=== PATIENT | male | born 1955 | race Caucasian/White ===

== ENCOUNTER 2017-04-29 16:39 | Emergency (ER) | payer OTHER ==
--- NOTE | 2017-04-29 17:51 | EDM.PDOC ---
ED HPI GENERAL MEDICAL PROBLEM - General Chief Complaint: Chest Pain Stated Complaint: MAY HAVE CRACKED RIB Time Seen by Provider: 04/29/17 17:51 Source of Information: Reports: Patient - History of Present Illness INITIAL COMMENTS - FREE TEXT/NARRATIVE: Patient is a 61-year-old male who is here for evaluation of right-sided chest pain with cough. He states that he was diagnosed with bronchitis by his PCP. He was treated with Zithromax and albuterol inhaler. He has been taking ibuprofen 800 mg 3 times a day. Patient states that his cough is mildly improving but he is having pain to 1 specific location when he coughs. Patient states that he did have a chest x-ray yesterday was told by his provider that it was normal. Right Chest Pain Score (Numeric/FACES): 10 - Related Data Allergies Allergy/AdvReac Type Severity Reaction Status Date / Time No Known Allergies Allergy Verified 04/29/17 17:08 Home Meds: Home Meds Indomethacin [Indocin] 25 mg PO TID PRN #15 cap 04/29/17 [Rx] Promethazine HCl/Codeine [Prometh-Codein 6.25-10 mg/5 ml] 5 ml PO BEDTIME PRN # 100 ml 04/29/17 [Rx] predniSONE [Prednisone] 20 mg PO DAILY #7 tablet 04/29/17 [Rx] Past Medical History Cardiovascular History: Reports: High Cholesterol, Hypertension - Past Surgical History HEENT Surgical History: Reports: Other (See Below) Other HEENT Surgeries/Procedures: theroglossal cyst Social & Family History - Tobacco Use Smoking Status *Q: Never Smoker - Caffeine Use Caffeine Use: Reports: Coffee - Recreational Drug Use Recreational Drug Use: No ED ROS GENERAL - Review of Systems Review Of Systems: See Below Constitutional: Reports: Malaise, Fatigue, Decreased Appetite. Denies: Fever, Chills, Weakness HEENT: Reports: Rhinitis, Sinus Problem. Denies: Throat Pain, Throat Swelling Respiratory: Reports: Wheezing, Pleuritic Chest Pain, Cough, Sputum. Denies: Shortness of Breath, Hemoptysis Cardiovascular: Denies: Chest Pain, Blood Pressure Problem, Dyspnea on Exertion , Edema, Lightheadedness, Palpitations Endocrine: Reports: Fatigue GI/Abdominal: Reports: Decreased Appetite. Denies: Abdominal Pain, Nausea, Vomiting Musculoskeletal: Reports: Other (right chest wall pain) Skin: Reports: No Symptoms Neurological: Reports: No Symptoms Psychiatric: Reports: No Symptoms ED EXAM, GENERAL - Physical Exam Exam: See Below Exam Limited By: No Limitations General Appearance: Alert, WD/WN, No Apparent Distress Eye Exam: Bilateral Eye: Normal Inspection, PERRL Ears: Normal External Exam, Normal Canal, Normal TMs Nose: Normal Inspection, Nasal Drainage (Purulent) Throat/Mouth: Normal Inspection, Normal Oropharynx, No Airway Compromise, Other (Clear postnasal drainage) Head: Atraumatic, Normocephalic Respiratory/Chest: No Respiratory Distress, No Accessory Muscle Use, Wheezing ( Occasional scattered expiratory bilaterally). No: Respiratory Distress, Decreased Breath Sounds, Crackles, Rales Cardiovascular: Normal Peripheral Pulses, Regular Rate, Rhythm, No Murmur, No Rub GI/Abdominal: Normal Bowel Sounds Neurological: Alert, Oriented Psychiatric: Normal Affect, Normal Mood Course - Vital Signs Last Recorded V/S: Last Vital Signs Temp 97.3 F 04/29/17 17:04 Pulse 77 04/29/17 17:04 Resp 16 04/29/17 17:04 BP 168/86 H 04/29/17 17:04 Pulse Ox 97 04/29/17 17:04 - Re-Assessments/Exams Free Text/Narrative Re-Assessment/Exam: Pleurisy secondary to bronchitis. I do not see reason to repeat chest x-ray at this time. Patient will continue his Zithromax and albuterol inhaler. Will put him on prednisone for a few days. Indomethacin 3 times daily as needed for pain. Will also give him promethazine cough syrup for bedtime. Recommend that he rest, maximize oral fluids. Patient is to follow-up with PCP in 5-7 days or sooner if needed. He can return to the emergency room if any worsening of symptoms. 04/29/17 21:09 Departure - Departure Time of Disposition: 18:20 Disposition: Home, Self-Care 01 Condition: Good Clinical Impression: Cough, Pleurisy - Discharge Information Prescriptions: Indomethacin [Indocin] 25 mg PO TID PRN #15 cap PRN Reason: Pain predniSONE [Prednisone] 20 mg PO DAILY #7 tablet Promethazine HCl/Codeine [Prometh-Codein 6.25-10 mg/5 ml] 5 ml PO BEDTIME PRN # 100 ml PRN Reason: Cough Instructions: Cough, Adult, [id number] Referrals: Anusha Adamson, SE[employer] INSTALLER [Primary Care Provider] - Forms: ED Department Discharge Additional Instructions: Rest, push fluids as much as possible indocin 3x daily as needed cough syrup as bedtime if needed, will cause drowsiness. Hold a pillow when you cough Follow-up with your PCP next week if symptoms not improving or sooner if needed.
== END 2017-04-29 18:33 | disposition home or self-care (01) ==
LOC: JD.ED 16:39
DX: R09.1 Pleurisy (principal); E78.00 Pure hypercholesterolemia, unspecified; I10 Essential (primary) hypertension; Z79.899 Other long term (current) drug therapy
CPT/HCPCS: 99283

== ENCOUNTER 2019-02-14 11:06 | Inpatient (IN) | payer MEDICARE, OTHER ==
[~2019-02-14 11:06] MED LIST: Acetaminophen 325 MG Tab PO ONE; Bisacodyl 5 MG Tab PO PRN; Lactated Ringers 1,000 ML IV SCH; Lidocaine 1%/Sod Bicarbonate in NS 8.4% 1 ML Syringe IDERM PRN; Magnesium Hydroxide 400 MG/5 ML Susp 30 ML Cup PO PRN; Morphine 2 MG/ML Syringe IVPUSH PRN; Naloxone 0.4 MG/ML SDV IVPUSH PRN; Ondansetron 4 MG/2 ML SDV IVPUSH PRN; Pregabalin 25 MG Cap PO SCH; Sennosides 8.6 MG Tab PO PRN; Sodium Chloride 0.9% 10 ML Syringe FLUSH PRN; oxyCODONE ER 10 MG TAB.ER PO SCH
[2019-02-14] MEDS ORDERED: Ropivacaine 0.5% 5 MG/ML 30 ML SDV ONE (11:25)
[2019-02-14] MEDS ORDERED: fentaNYL 100 MCG/2 ML SDV ONE (11:50)
[2019-02-14] MEDS ORDERED: Propofol 200 MG/20 ML SDV ONE ×2 (11:50→12:57)
--- NOTE | 2019-02-14 11:50 | PCM.CONS ---
H&P History of Present Illness - General Date of Service: 02/14/19 Admit Problem/Dx: Admission Diagnosis/Problem Admission Diagnosis/Problem Osteoarthritis of knee Source of Information: Patient, Old Records, Provider, RN, RN Notes Reviewed History Limitations: Reports: No Limitations - History of Present Illness Initial Comments - Free Text/Narative: Duarte Morley is a 63 yo male patient of Dr. Sanders who is post-operative day 0 of left TKA with right knee cortisone injection. Hospital medicine was consulted for post-operative medical care of the following listed medical conditions. At this time he is resting comfortably in bed. Pain is controlled. He denies any chest pain, shortness of breath, palpitations, nausea, or vomiting. He carries a history of: Theroglossal cyst, HLD, BPH, HTN, Hypokalemia , Diverticulitis, GERD, Hematuria, Leukocytosis, Sub total parathyroidectomy, Nocturia. He was never a smoker. He was noted to have some PACs during surgery and will be placed on telemetry. 12-lead EKG obtained post-surgically showed a sinus rhythm with no ectopy. He is a full code. His primary care provider is Anusha Adamson NP. Left KNee Pain Score (Numeric/FACES): 2 - Related Data Allergies/Adverse Reactions: Allergies Allergy/AdvReac Type Severity Reaction Status Date / Time No Known Allergies Allergy Verified 02/14/19 06:33 Home Medications: Home Meds Fish Oil/[place]-3 Fatty Acids [Fish Oil 1,000 MG] 2 each PO DAILY 02/01/18 [ History] Lutein 6 mg PO DAILY 02/01/18 [History] Tamsulosin HCl 1 tab PO DAILY 02/01/18 [History] Ubidecarenone [Coenzyme Q-10] 10 mg PO DAILY 02/01/18 [History] atorvaSTATin [Lipitor] 20 mg PO BEDTIME 02/01/18 [History] Cholecalciferol (Vitamin D3) [Vitamin D3] 5,000 unit PO DAILY 02/14/19 [History] Finasteride 5 mg PO DAILY 02/14/19 [History] Lisinopril 10 mg PO DAILY 02/14/19 [History] Past Medical History HEENT History: Reports: Impaired Vision, Other (See Below) Other HEENT History: eye irritation Cardiovascular History: Reports: High Cholesterol, Hypertension Other Respiratory History: chest congestion, cough, URI Gastrointestinal History: Reports: Other (See Below) Other Gastrointestinal History: diverticulitis, heartburn, abdominal wall lipoma Genitourinary History: Reports: BPH, Other (See Below) Other Genitourinary History: nocturia, UTI MOLD STACKER History: Reports: None Other Musculoskeletal History: chronic pain, left elbow pain, rib pain Neurological History: Reports: Other (See Below) Other Neuro History: seasickness Psychiatric History: Reports: None Hematologic History: Reports: Other (See Below) Other Hematologic History: leukocytosis Immunologic History: Reports: None Oncologic (Cancer) History: Reports: None Dermatologic History: Reports: Other (See Below) Other Dermatologic History: skin lesion - Past Surgical History Head Surgeries/Procedures: Reports: None HEENT Surgical History: Reports: Other (See Below) Other HEENT Surgeries/Procedures: theroglossal cyst Respiratory Surgical History: Reports: None GI Surgical History: Reports: Colonoscopy Female Surgical History: Reports: None Male Surgical History: Reports: None Endocrine Surgical History: Reports: Parathyroidectomy, Thyroid Biopsy Musculoskeletal Surgical History: Reports: Other (See Below) Other Musculoskeletal Surgeries/Procedures:: ankle fracture with surgical repair Oncologic Surgical History: Reports: None Social & Family History - Family History Family Medical History: Noncontributory - Tobacco Use Smoking Status *Q: Never Smoker - Caffeine Use Caffeine Use: Reports: Soda - Recreational Drug Use Recreational Drug Use: No Drug Use in Last 12 Months: No H&P Review of Systems - Review of Systems: Review Of Systems: See Below General: Reports: No Symptoms. Denies: Fever, Chills HEENT: Reports: No Symptoms. Denies: Headaches, Sore Throat Pulmonary: Reports: No Symptoms. Denies: Shortness of Breath, Wheezing, Pleuritic Chest Pain, Cough, Sputum Cardiovascular: Reports: No Symptoms. Denies: Chest Pain, Palpitations, Dyspnea on Exertion Gastrointestinal: Reports: No Symptoms. Denies: Abdominal Pain, Constipation, Diarrhea, Nausea, Vomiting Genitourinary: Reports: No Symptoms. Denies: Pain Musculoskeletal: Reports: Leg Pain (left) Skin: Reports: No Symptoms. Denies: Cyanosis Psychiatric: Reports: No Symptoms. Denies: Confusion Neurological: Reports: Difficulty Walking, Gait Disturbance. Denies: Pre- Existing Deficit Hematologic/Lymphatic: Reports: No Symptoms Immunologic: Reports: No Symptoms Exam - Exam Exam: See Below - Exam Quality Assessment: Supplemental Oxygen, DVT Prophylaxis General: Alert, Oriented, Cooperative. No: Mild Distress HEENT: Conjunctiva Clear, EACs Clear, EOMI, Hearing Intact, Mucosa Moist & [place] , Nares Patent, Posterior Pharynx Clear, PERRLA Neck: Supple, Trachea Midline Lungs: Clear to Auscultation, Normal Respiratory Effort Cardiovascular: Regular Rate, Regular Rhythm, Other (Occasional PAC on the monitor. ) GI/Abdominal Exam: Normal Bowel Sounds, Soft, Non-Tender, No Distention, No Abnormal Bruit (Male) Exam: Deferred Rectal (Males) Exam: Deferred Back Exam: Normal Inspection, Full Range of Motion Extremities: No Pedal Edema, Normal Capillary Refill, Leg Pain, Limited Range of Motion, Other (Bandage in place on left leg. Bandage is dry and intact. Cooling pack in place. ) Peripheral Pulses: 2+: Radial (L), Radial (R), Dorsalis Pedis (L), Dorsalis Pedis (R) Skin: Warm, Dry, Intact Neurological: Cranial Nerves Intact (Grossly ) Neuro Extensive - Mental Status: Alert, Oriented x3, Normal Mood/Affect Psychiatric: Alert, Normal Affect, Normal Mood Consult PN Assessment/Plan POD#: 0 Procedures: Procedures ASSAY OF BLOOD/URIC ACID (10/23/15) ASSAY OF LIPASE (02/01/18) ASSAY OF PREALBUMIN (02/03/19) ASSAY OF PSA TOTAL (03/07/15) ASSAY THYROID STIM HORMONE (05/12/17) BL SMEAR W/DIFF WBC COUNT (02/01/18) COMPLETE CBC AUTOMATED (02/01/18) COMPLETE CBC W/AUTO DIFF WBC (02/03/19) COMPREHEN METABOLIC PANEL (02/03/19) CT ABD & PELV W/CONTRAST (02/01/18) CT ABDOMEN W/O DYE (07/07/17) CT THORAX W/O DYE (07/07/17) EMERGENCY DEPT VISIT (02/01/18) EMERGENCY DEPT VISIT (04/29/17) HYDRATE IV INFUSION ADD-ON (02/01/18) LIPID PANEL (05/12/17) PROTHROMBIN TIME (02/03/19) ROUTINE VENIPUNCTURE (02/01/18) THER/PROPH/DIAG INJ IV PUSH (02/01/18) THROMBOPLASTIN TIME PARTIAL (02/03/19) TX/PRO/DX INJ NEW DRUG ADDON (02/01/18) URINALYSIS AUTO W/SCOPE (02/01/18) URINE CULTURE/COLONY COUNT (02/16/18) X-RAY EXAM CHEST 2 VIEWS (02/03/19) X-RAY EXAM OF ELBOW (10/23/15) X-RAY EXAM RIBS UNI 2 VIEWS (04/28/17) (1) S/P total knee arthroplasty SNOMED Code(s): 4911388111229, 708055773, 6646419563479 Code(s): Z96.659 - PRESENCE OF UNSPECIFIED ARTIFICIAL KNEE JOINT Priority: High Current Visit: Yes Qualifiers: Laterality: left Qualified Code(s): Z96.652 - Presence of left artificial knee joint (2) Osteoarthritis SNOMED Code(s): 289964088 Code(s): M19.90 - UNSPECIFIED OSTEOARTHRITIS, UNSPECIFIED SITE Priority: High Current Visit: Yes Qualifiers: Osteoarthritis location: knee Osteoarthritis type: primary Laterality: bilateral Qualified Code(s): M17.0 - Bilateral primary osteoarthritis of knee (3) HLD (hyperlipidemia) SNOMED Code(s): 69320225 Code(s): E78.5 - HYPERLIPIDEMIA, UNSPECIFIED Priority: Low Current Visit : No Qualifiers: Hyperlipidemia type: unspecified Qualified Code(s): E78.5 - Hyperlipidemia , unspecified (4) HTN (hypertension) SNOMED Code(s): 87105957 Code(s): I10 - ESSENTIAL (PRIMARY) HYPERTENSION Priority: Medium Current Visit: No Qualifiers: Hypertension type: unspecified Qualified Code(s): I10 - Essential (primary ) hypertension (5) BPH (benign prostatic hyperplasia) SNOMED Code(s): 798315149 Code(s): N40.0 - BENIGN PROSTATIC HYPERPLASIA WITHOUT LOWER URINRY TRACT SYMP Priority: Low Current Visit: No Qualifiers: Lower urinary tract symptom presence: unspecified whether lower urinary tract symptoms present Qualified Code(s): N40.0 - Benign prostatic hyperplasia without lower urinary tract symptoms (6) Hypokalemia SNOMED Code(s): 09272543 Code(s): E87.6 - HYPOKALEMIA Priority: Low Current Visit: No (7) GERD (gastroesophageal reflux disease) SNOMED Code(s): 728576804 Code(s): K21.9 - GASTRO-ESOPHAGEAL REFLUX DISEASE WITHOUT ESOPHAGITIS Priority: Low Current Visit: No Qualifiers: Esophagitis presence: esophagitis presence not specified Qualified Code(s) : K21.9 - Gastro-esophageal reflux disease without esophagitis (8) Leukocytosis SNOMED Code(s): 854131366, 096455977 Code(s): D72.829 - ELEVATED WHITE BLOOD CELL COUNT, UNSPECIFIED Priority: Low Current Visit: No Qualifiers: Leukocytosis type: unspecified Qualified Code(s): D72.829 - Elevated white blood cell count, unspecified (9) S/P subtotal parathyroidectomy SNOMED Code(s): 628427557594011, 532928239980514 Code(s): Z98.890 - OTHER SPECIFIED POSTPROCEDURAL STATES Priority: Low Current Visit: No (10) Diverticulitis SNOMED Code(s): 952745963 Code(s): K57.92 - DVTRCLI OF INTEST, PART UNSP, W/O PERF OR ABSCESS W/O BLEED Priority: Low Current Visit: No (11) Hematuria SNOMED Code(s): 30984125 Code(s): R31.9 - HEMATURIA, UNSPECIFIED Priority: Low Current Visit: No Qualifiers: Hematuria type: unspecified type Qualified Code(s): R31.9 - Hematuria, unspecified Problem List Initiated/Reviewed/Updated: Yes Plan: I/P: Acute: S/P left total knee arthroplasty - post-operative day 0 -DVT prophylaxis and pain management per primary care team -PT/OT -IS/RT -Monitor oxygen saturation -Titrate oxygen as needed -Home medications reviewed -Vital signs stable -Monitor labs -Pre-operative Hgb was 17.1 -Pre-operative GFR was 55 -Pre-operative BUN was 20 -Pre-operative WBC was 9.16 -Pre-operative alk phos was 122 -Pre-operative potassium was 3.4 Osteoarthritis of Bilateral knees -Pain management per primary care team S/P cortisone injection in left knee -Management per primary team Chronic: Theroglossal cyst HLD BPH HTN Hypokalemia Diverticulitis GERD Hematuria Leukocytosis Sub total parathyroidectomy Nocturia Plan: Telemetry CM for discharge planning GI prophylaxis Home medications as indicated Other orders as listed above Routine AM labs He is a full code. His PCP is Anusha Adamson NP Thank you for allowing us to participate in the care of this patient!! Requesting Provider: Dr. Sanders Date Consult Requested: 02/14/19 Patient History Reviewed: Yes Admission H&P Reviewed: Yes
[2019-02-14] MEDS ORDERED: Midazolam 1 MG/ML 2 ML SDV ONE (11:51)
[2019-02-14] MEDS ORDERED: Lidocaine 1% 4 ML ONE (11:52)
[2019-02-14] MEDS ORDERED: ceFAZolin 1 GM Vial ONE (11:53)
[2019-02-14] MEDS ORDERED: Dexamethasone 4 MG/ML 5 ML MDV ONE (11:54)
[2019-02-14] MEDS ORDERED: Ketorolac 30 MG/ML SDV ONE (11:54)
[2019-02-14] MEDS ORDERED: Ondansetron 4 MG/2 ML SDV ONE (11:54)
[2019-02-14] MEDS ORDERED: Acetaminophen 325 MG Tab PO ONE (12:00)
[2019-02-14] MEDS ORDERED: ePHEDrine/Normal Saline 25 MG/5 ML Syringe ONE ×2 (12:01→14:41)
--- NOTE | 2019-02-14 12:05 | PCM.PREANE ---
Preanesthetic Assessment - Procedure Proposed Procedure: Left total knee arthroplasty - Anesthesia/Transfusion/Family Hx Anesthesia History: Prior Anesthesia Without Reaction Family History of Anesthesia Reaction: No Transfusion History: No Prior Transfusion(s) - Review of Systems General: No Symptoms Pulmonary: No Symptoms Cardiovascular: No Symptoms Gastrointestinal: No Symptoms Neurological: No Symptoms Other: Reports: None - Physical Assessment NPO Status Date: 02/13/19 NPO Status Time: 00:00 Height: 1.7 m Weight: 103.873 kg ASA Class: 2 Mental Status: Alert & Oriented x3 Airway Class: Mallampati = 1 Dentition: Reports: Normal Dentition Thyro-Mental Finger Breadths: 2 Mouth Opening Finger Breadths: 3 ROM/Head Extension: Full Lungs: Clear to Auscultation, Normal Respiratory Effort Cardiovascular: Regular Rate, Irregular Rhythm - Lab Values: Laboratory Last Values MRSA (PCR) Negative 02/01/19 15:13 - Imaging/EKG Impressions: Up dated EKG 02/14/19 no change from previous EKG see chart - Allergies Allergies/Adverse Reactions: Allergies Allergy/AdvReac Type Severity Reaction Status Date / Time No Known Allergies Allergy Verified 02/14/19 06:33 - Blood Blood Available: No Product(s) Available: None - Acknowledgements Anesthesia Type Planned: Spinal Pt an Appropriate Candidate for the Planned Anesthesia: Yes Alternatives and Risks of Anesthesia Discussed w Pt/Guardian: Yes Pt/Guardian Understands and Agrees with Anesthesia Plan: Yes PreAnesthesia Questionnaire HEENT History: Reports: Impaired Vision, Other (See Below) Other HEENT History: eye irritation Cardiovascular History: Reports: High Cholesterol, Hypertension Other Respiratory History: chest congestion, cough, URI Gastrointestinal History: Reports: GERD, Other (See Below) Other Gastrointestinal History: diverticulitis, heartburn, abdominal wall lipoma Genitourinary History: Reports: BPH, Other (See Below) Other Genitourinary History: nocturia, UTI SPA MANAGER History: Reports: None Other Musculoskeletal History: chronic pain, left elbow pain, rib pain Neurological History: Reports: Other (See Below) Other Neuro History: seasickness Psychiatric History: Reports: None Hematologic History: Reports: Other (See Below) Other Hematologic History: leukocytosis Immunologic History: Reports: None Oncologic (Cancer) History: Reports: None Dermatologic History: Reports: Other (See Below) Other Dermatologic History: skin lesion - Past Surgical History Head Surgeries/Procedures: Reports: None HEENT Surgical History: Reports: Other (See Below) Other HEENT Surgeries/Procedures: theroglossal cyst Respiratory Surgical History: Reports: None GI Surgical History: Reports: Colonoscopy Female Surgical History: Reports: None Male Surgical History: Reports: None Endocrine Surgical History: Reports: Parathyroidectomy, Thyroid Biopsy Musculoskeletal Surgical History: Reports: Other (See Below) Other Musculoskeletal Surgeries/Procedures:: ankle fracture with surgical repair Oncologic Surgical History: Reports: None - SUBSTANCE USE Smoking Status *Q: Never Smoker Recreational Drug Use History: No - HOME MEDS Home Medications: Home Meds Fish Oil/[place]-3 Fatty Acids [Fish Oil 1,000 MG] 2 each PO DAILY 02/01/18 [ History] Lutein 6 mg PO DAILY 02/01/18 [History] Tamsulosin HCl 1 tab PO DAILY 02/01/18 [History] Ubidecarenone [Coenzyme Q-10] 10 mg PO DAILY 02/01/18 [History] atorvaSTATin [Lipitor] 20 mg PO BEDTIME 02/01/18 [History] Cholecalciferol (Vitamin D3) [Vitamin D3] 5,000 unit PO DAILY 02/14/19 [History] Finasteride 5 mg PO DAILY 02/14/19 [History] Lisinopril 10 mg PO DAILY 02/14/19 [History] - CURRENT (IN HOUSE) MEDS Current Meds: Current Medications Acetaminophen (Tylenol) 975 mg PO ONETIME ONE Stop: 02/14/19 12:01 Last Admin: 02/14/19 11:46 Dose: 975 mg Aspirin (Ecotrin) 325 mg PO BID ELVA Bisacodyl (Dulcolax) 5 mg PO DAILY PRN PRN Reason: Constipation Cyclobenzaprine HCl (Flexeril) 10 mg PO TID PRN PRN Reason: Spasms Famotidine (Pepcid) 20 mg PO Q12H ELVA Lactated Ringer's (Ringers, Lactated) 1,000 mls @ 125 mls/hr IV ASDIRECTED ELVA Stop: 02/14/19 23:00 Cefazolin Sodium/Dextrose 2 gm (/ Premix) 50 mls @ 100 mls/hr IV Q8H ELVA Stop: 02/14/19 22:59 Ketorolac Tromethamine (Toradol) 15 mg IVPUSH Q6H PRN PRN Reason: Pain Lidocaine/Sodium Bicarbonate (Buffered Lidocaine 1% In Ns 8.4%) 0.25 ml IDERM ONETIME PRN PRN Reason: Prior to IV Start Stop: 02/14/19 18:00 Magnesium Hydroxide (Milk Of Magnesia) 30 ml PO BID PRN PRN Reason: Constipation Morphine Sulfate (Morphine) 2 mg IVPUSH Q2H PRN PRN Reason: Breakthrough Pain Naloxone HCl (Narcan) 0.1 mg IVPUSH Q5M PRN PRN Reason: Oversedation Ondansetron HCl (Zofran) 4 mg IVPUSH Q6H PRN PRN Reason: Nausea/Vomiting Oxycodone HCl (Oxycontin) 10 mg PO ONETIME ELVA Stop: 02/14/19 12:00 Last Admin: 02/14/19 11:46 Dose: 10 mg Oxycodone/Acetaminophen (Percocet 325-5 Mg) 1 - 2 tab PO Q4H PRN PRN Reason: Pain Pregabalin (Lyrica) 50 mg PO ONETIME ELVA Stop: 02/14/19 12:00 Last Admin: 02/14/19 11:46 Dose: 50 mg Senna (Senna) 8.6 mg PO BID PRN PRN Reason: Constipation Sodium Chloride (Saline Flush) 10 ml FLUSH ASDIRECTED PRN PRN Reason: Keep Vein Open Stop: 02/14/19 18:00 Discontinued Medications Acetaminophen (Tylenol) 975 mg PO ONETIME ONE Stop: 02/14/19 07:01 Morphine Sulfate 8 mg/Epinephrine HCl 0.3 mg/Cefuroxime Sodium 750 mg/Ketorolac Tromethamine 30 mg/Sodium Chloride 27.9 ml 0 mg .XX ONETIME ONE Stop: 02/14/19 08:01 Fentanyl (Sublimaze) Confirm Administered Dose 100 mcg .ROUTE .STK-MED ONE Stop: 02/14/19 11:51 Midazolam HCl (Versed 1 Mg/Ml) Confirm Administered Dose 2 mg .ROUTE .STK-MED ONE Stop: 02/14/19 11:52 Propofol (Diprivan 20 Ml) Confirm Administered Dose 600 mg .ROUTE .STK-MED ONE Stop: 02/14/19 11:51 Ropivacaine (Naropin 0.5%) Confirm Administered Dose 30 ml .ROUTE .STK-MED ONE Stop: 02/14/19 11:26
[2019-02-14] MEDS ORDERED: Lactated Ringers 1,000 ML ONE ×2 (14:40→15:32)
[2019-02-14] MEDS: Bupivacaine 0.25% 10 ML SDV ONE ×4 (15:00→15:28)
[2019-02-14] MEDS: Iodine/Sodium Iodide 2% Tincture 30 ML Bottle ONE ×2 (15:01→15:05)
[2019-02-14] MEDS: ceFAZolin 1 GM Vial ONE ×2 (15:01→15:06)
[2019-02-14] MEDS: Morphine 8 MG, EPINEPHrine 0.3 MG, Cefuroxime 750 MG, Ketorolac 30 MG, Sodium Chloride ... ONE ×10 (15:02→15:12)
[2019-02-14] MEDS: Triamcinolone Acetonide 40 MG/ML 1 ML MDV ONE ×2 (15:03→15:28)
[2019-02-14] MEDS: Vancomycin 1 GM SDV ONE ×2 (15:04→15:14)
[2019-02-14] MEDS ORDERED: ePHEDrine 50 MG/ML SDV IVPUSH PRN (15:46)
[2019-02-14] MEDS ORDERED: fentaNYL 100 MCG/2 ML SDV IVPUSH PRN (15:46)
--- NOTE | 2019-02-14 15:46 | PCM.POSTAN ---
POST ANESTHESIA ASSESSMENT - MENTAL STATUS Mental Status: Alert, Oriented - VITAL SIGNS Vital Signs: Last Vital Signs Temp 36.7 C 02/14/19 11:25 Pulse 60 02/14/19 11:25 Resp 16 02/14/19 11:25 BP 142/92 H 02/14/19 11:25 Pulse Ox 96 02/14/19 11:25 - RESPIRATORY Respiratory Status: Respiratory Rate WNL, Airway Patent, O2 Saturation Stable, Supplemental Oxygen - CARDIOVASCULAR CV Status: Pulse Rate WNL, Blood Pressure Stable - GASTROINTESTINAL GI Status: No Symptoms - PAIN Pain Score: 0 - POST OP HYDRATION Hydration Status: Adequate & Stable
--- NOTE | 2019-02-14 16:14 | PCM.SN ---
- Free Text/Narrative Note: Left selective femoral nerve block at the adductor canal for post-procedure pain control under US guidance requested by Dr. Sanders. Time Out: 155 Start: 155 End: 160 Chart reviewed. Consent signed. Questions answered. Appropriate monitors applied. Time out performed. Left mid-shaft femur identified with ultrasound, scanning medially of femur, the femoral artery in the adductor canal visualized , and the femoral nerve located laterally to the artery. The skin was prepped lateral to the ultrasound probe with chlorahexadine times two. The 21ga 4 insulated block needle was inserted under direct ultrasound guidance into the adductor canal. 25mL of 0.5% ropivacaine with 1:200,000 epinephrine was injected circumferentially around the nerve with intermittent negative aspiration noted. Patient tolerated the procedure well. Sterile technique noted along with sterile gloves, mask, and sterile probe cover. See picture on progress note and vital signs on nurses notes. Block completed in PACU. Gucci Weiner CRNA
--- NOTE | 2019-02-14 16:29 | CR ---
Left knee: AP and crosstable lateral views of the left knee were obtained. Comparison: No prior knee exam. Knee prosthesis is seen. Components are aligned. Soft tissue air is noted from the surgical procedure. Underlying bony structures are intact. Impression: 1. Satisfactory postoperative radiographic appearance of recently placed left knee prosthesis. Diagnostic code #2 This report was dictated in [place] Standard Time
[2019-02-14] MEDS: Acetaminophen/oxyCODONE 325-5 MG Tab PO PRN ×2 (18:33→22:16)
[2019-02-14] MEDS ORDERED: Finasteride 5 MG Tab PO SCH (19:00)
[2019-02-14] MEDS ORDERED: Tamsulosin 0.4 MG Cap.ER PO SCH (19:00)
[2019-02-14] MEDS ORDERED: Cholecalciferol (Vitamin D3) 5,000 UNIT Tab PO SCH (19:00)
[2019-02-14] MEDS: Ketorolac 15 MG/ML SDV IVPUSH PRN (20:53)
[2019-02-14] MEDS: ceFAZolin 2 GM in Premix Bag 1 BAG IV SCH (20:56)
[2019-02-14] MEDS: Famotidine 20 MG Tab PO SCH (20:57)
[2019-02-14] MEDS: Cyclobenzaprine 10 MG Tab PO PRN (20:57)
[2019-02-14] MEDS ORDERED: Simvastatin 20 MG Tab PO SCH (21:00)
[2019-02-15] MEDS: Acetaminophen/oxyCODONE 325-5 MG Tab PO PRN ×3 (02:37→11:21)
[2019-02-15] MEDS: Cyclobenzaprine 10 MG Tab PO PRN ×2 (03:44→12:01)
[2019-02-15] MEDS: Ketorolac 15 MG/ML SDV IVPUSH PRN (03:45)
[2019-02-15] MEDS: ceFAZolin 2 GM in Premix Bag 1 BAG IV SCH ×2 (03:46→12:02)
--- NOTE | 2019-02-15 07:28 | PCM.CONSN ---
- General Info Date of Service: 02/15/19 Admission Dx/Problem (Free Text): Admission Diagnosis/Problem Admission Diagnosis/Problem Osteoarthritis of knee Functional Status: Reports: Pain Controlled, Tolerating Diet, Ambulating, Urinating, Incentive Spirometry. Denies: New Symptoms - Review of Systems General: Reports: No Symptoms. Denies: Fever, Chills HEENT: Reports: No Symptoms. Denies: Headaches, Sore Throat Pulmonary: Reports: No Symptoms. Denies: Shortness of Breath, Pleuritic Chest Pain, Cough, Sputum, Wheezing Cardiovascular: Reports: No Symptoms. Denies: Chest Pain, Palpitations, Dyspnea on Exertion Gastrointestinal: Reports: No Symptoms. Denies: Abdominal Pain, Constipation, Diarrhea, Nausea, Vomiting Genitourinary: Reports: No Symptoms. Denies: Pain Musculoskeletal: Reports: Leg Pain Skin: Reports: No Symptoms. Denies: Cyanosis Neurological: Reports: Difficulty Walking, Gait Disturbance. Denies: Confusion , Pre-Existing Deficit Psychiatric: Reports: No Symptoms - Patient Data Vitals - Most Recent: Last Vital Signs Temp 97.9 F 02/15/19 02:33 Pulse 64 02/15/19 02:33 Resp 16 02/15/19 02:33 BP 126/90 02/15/19 02:33 Pulse Ox 97 02/15/19 02:33 Weight - Most Recent: 229 lb I&O - Last 24 Hours: Intake & Output 02/14/19 02/15/19 02/15/19 22:59 06:59 14:59 Intake Total 600 750 Output Total 1100 Balance 600 -350 Lab Results Last 24 Hours: Laboratory Results - last 24 hr 02/15/19 02/15/19 Range/Units 04:39 04:39 WBC 14.15 H (4.23-9.07) K/mm3 RBC 5.43 (4.63-6.08) M/mm3 Hgb 14.2 D (13.7-17.5) gm/dl Hct 43.3 (40.1-51.0) % MCV 79.7 (79.0-92.2) fl MCH 26.2 (25.7-32.2) pg MCHC 32.8 (32.2-35.5) g/dl RDW Std Deviation 43.0 (35.1-43.9) fL Plt Count 189 (163-337) K/mm3 MPV 11.1 (9.4-12.3) fl Sodium 138 (136-145) mEq/L Potassium 4.6 (3.5-5.1) mEq/L Chloride 104 (98-107) mEq/L Carbon Dioxide 26 (21-32) mEq/L Anion Gap 12.6 (5-15) BUN 21 H (7-18) mg/dL Creatinine 1.5 H (0.7-1.3) mg/dL Est Cr Clr Drug Dosing 45.90 mL/min Estimated GFR (MDRD) 47 (>60) mL/min BUN/Creatinine Ratio 14.0 (14-18) Glucose 152 H (80-115) mg/dL Calcium 8.4 L (8.5-10.1) mg/dL Total Bilirubin 0.3 (0.2-1.0) mg/dL AST 22 (15-37) U/L ALT 29 (16-63) U/L Alkaline Phosphatase 94 (46-116) U/L Total Protein 5.6 L (6.4-8.2) g/dl Albumin 3.0 L (3.4-5.0) g/dl Globulin 2.6 gm/dL Albumin/Globulin Ratio 1.2 (1-2) Med Orders - Current: Current Medications Aspirin (Ecotrin) 325 mg PO BID [facility] Bisacodyl (Dulcolax) 5 mg PO DAILY PRN PRN Reason: Constipation Cholecalciferol (Vitamin D3) 5,000 unit PO DAILY@1900 [facility] Last Admin: 02/14/19 18:35 Dose: 5,000 unit Cyclobenzaprine HCl (Flexeril) 10 mg PO TID PRN PRN Reason: Spasms Last Admin: 02/15/19 03:44 Dose: 10 mg Famotidine (Pepcid) 20 mg PO Q12H [facility] Last Admin: 02/14/19 20:57 Dose: 20 mg Finasteride (Proscar) 5 mg PO DAILY@1900 [facility] Last Admin: 02/14/19 18:35 Dose: 5 mg Cefazolin Sodium/Dextrose 2 gm (/ Premix) 50 mls @ 100 mls/hr IV Q8H [facility] Stop: 02/15/19 12:59 Last Admin: 02/15/19 03:46 Dose: 100 mls/hr Magnesium Hydroxide (Milk Of Magnesia) 30 ml PO BID PRN PRN Reason: Constipation Morphine Sulfate (Morphine) 2 mg IVPUSH Q2H PRN PRN Reason: Breakthrough Pain Naloxone HCl (Narcan) 0.1 mg IVPUSH Q5M PRN PRN Reason: Oversedation Ondansetron HCl (Zofran) 4 mg IVPUSH Q6H PRN PRN Reason: Nausea/Vomiting Oxycodone/Acetaminophen (Percocet 325-5 Mg) 1 - 2 tab PO Q4H PRN PRN Reason: Pain Last Admin: 02/15/19 06:26 Dose: 2 tab Senna (Senna) 8.6 mg PO BID PRN PRN Reason: Constipation Simvastatin (Zocor) 20 mg PO BEDTIME [facility] Last Admin: 02/14/19 20:57 Dose: 20 mg Tamsulosin HCl (Flomax) 0.4 mg PO DAILY@1900 [facility] Last Admin: 02/14/19 18:35 Dose: 0.4 mg Discontinued Medications Acetaminophen (Tylenol) 975 mg PO ONETIME ONE Stop: 02/14/19 07:01 Last Admin: 02/14/19 22:57 Dose: Not Given Acetaminophen (Tylenol) 975 mg PO ONETIME ONE Stop: 02/14/19 12:01 Last Admin: 02/14/19 11:46 Dose: 975 mg Bupivacaine HCl (Sensorcaine-Mpf 0.25%) Confirm Administered Dose 30 ml .ROUTE .STK-MED ONE Stop: 02/14/19 12:37 Last Admin: 02/14/19 15:13 Dose: 30 ml Bupivacaine HCl (Sensorcaine-Mpf 0.25%) Confirm Administered Dose 10 ml .ROUTE .STK-MED ONE Stop: 02/14/19 12:38 Last Admin: 02/14/19 15:28 Dose: 4 ml Cefazolin Sodium (Ancef) Confirm Administered Dose 2 gm .ROUTE .STK-MED ONE Stop: 02/14/19 11:54 Cefazolin Sodium (Ancef) Confirm Administered Dose 2 gm .ROUTE .STK-MED ONE Stop: 02/14/19 12:37 Last Admin: 02/14/19 15:06 Dose: 2 gm Morphine Sulfate 8 mg/Epinephrine HCl 0.3 mg/Cefuroxime Sodium 750 mg/Ketorolac Tromethamine 30 mg/Sodium Chloride 27.9 ml 0 mg .XX ONETIME ONE Stop: 02/14/19 08:01 Last Admin: 02/14/19 15:12 Dose: 788.3 mg Dexamethasone (Dexamethasone) Confirm Administered Dose 20 mg .ROUTE .STK-MED ONE Stop: 02/14/19 11:55 Ephedrine Sulfate (Ephedrine In Ns) Confirm Administered Dose 25 mg .ROUTE .STK- MED ONE Stop: 02/14/19 12:02 Ephedrine Sulfate (Ephedrine In Ns) Confirm Administered Dose 25 mg .ROUTE .STK- MED ONE Stop: 02/14/19 14:42 Ephedrine Sulfate (Ephedrine Sulfate) 5 mg IVPUSH ASDIRECTED PRN PRN Reason: Hypotension Stop: 02/14/19 18:00 Fentanyl (Sublimaze) Confirm Administered Dose 100 mcg .ROUTE .STK-MED ONE Stop: 02/14/19 11:51 Fentanyl (Sublimaze) 50 mcg IVPUSH Q5M PRN PRN Reason: pain Stop: 02/14/19 18:00 Lactated Ringer's (Ringers, Lactated) 1,000 mls @ 125 mls/hr IV ASDIRECTED [facility] Stop: 02/14/19 23:00 Last Admin: 02/14/19 12:00 Dose: 125 mls/hr Lidocaine HCl (Xylocaine-Mpf 1%) Confirm Administered Dose 4 mls @ as directed .ROUTE .STK-MED ONE Stop: 02/14/19 11:53 Lactated Ringer's (Ringers, Lactated) Confirm Administered Dose 1,000 mls @ as directed .ROUTE .STK-MED ONE Stop: 02/14/19 14:41 Lactated Ringer's (Ringers, Lactated) Confirm Administered Dose 1,000 mls @ as directed .ROUTE .STK-MED ONE Stop: 02/14/19 15:33 Iodine (Iodine 2% Mild Tincture) Confirm Administered Dose 30 ml .ROUTE .STK- MED ONE Stop: 02/14/19 12:37 Last Admin: 02/14/19 15:05 Dose: 18 ml Ketorolac Tromethamine (Toradol) 15 mg IVPUSH Q6H PRN PRN Reason: Pain Last Admin: 02/15/19 03:45 Dose: 15 mg Ketorolac Tromethamine (Toradol) Confirm Administered Dose 30 mg .ROUTE .STK- MED ONE Stop: 02/14/19 11:55 Lidocaine/Sodium Bicarbonate (Buffered Lidocaine 1% In Ns 8.4%) 0.25 ml IDERM ONETIME PRN PRN Reason: Prior to IV Start Stop: 02/14/19 18:00 Midazolam HCl (Versed 1 Mg/Ml) Confirm Administered Dose 2 mg .ROUTE .STK-MED ONE Stop: 02/14/19 11:52 Non-Formulary Medication (Lutein [Lutein]) 6 mg PO DAILY [facility] Non-Formulary Medication (Ubidecarenone) 10 mg PO DAILY [facility] Ondansetron HCl (Zofran) Confirm Administered Dose 4 mg .ROUTE .STK-MED ONE Stop: 02/14/19 11:55 Oxycodone HCl (Oxycontin) 10 mg PO ONETIME [facility] Stop: 02/14/19 12:00 Last Admin: 02/14/19 11:46 Dose: 10 mg Pregabalin (Lyrica) 50 mg PO ONETIME [facility] Stop: 02/14/19 12:00 Last Admin: 02/14/19 11:46 Dose: 50 mg Propofol (Diprivan 20 Ml) Confirm Administered Dose 600 mg .ROUTE .STK-MED ONE Stop: 02/14/19 11:51 Propofol (Diprivan 20 Ml) Confirm Administered Dose 200 mg .ROUTE .STK-MED ONE Stop: 02/14/19 12:58 Ropivacaine (Naropin 0.5%) Confirm Administered Dose 30 ml .ROUTE .STK-MED ONE Stop: 02/14/19 11:26 Sodium Chloride (Saline Flush) 10 ml FLUSH ASDIRECTED PRN PRN Reason: Keep Vein Open Stop: 02/14/19 18:00 Tranexamic Acid (Cyklokapron) Confirm Administered Dose 1,000 mg .ROUTE .STK- MED ONE Stop: 02/14/19 12:37 Last Admin: 02/14/19 15:15 Dose: 1,000 mg Triamcinolone Acetonide (Kenalog-40) Confirm Administered Dose 80 mg .ROUTE .STK -MED ONE Stop: 02/14/19 12:38 Last Admin: 02/14/19 15:28 Dose: 80 mg Vancomycin HCl (Vancomycin) Confirm Administered Dose 1 gm .ROUTE .STK-MED ONE Stop: 02/14/19 12:37 Last Admin: 02/14/19 15:14 Dose: 1 gm - Exam Quality Assessment: DVT Prophylaxis General: Alert, Oriented, Cooperative, No Acute Distress HEENT: Pupils Equal, Pupils Reactive, EOMI, Mucous Membr. Moist/Straughn Neck: Supple, Trachea Midline Lungs: Clear to Auscultation, Normal Respiratory Effort Cardiovascular: Regular Rate, Regular Rhythm GI/Abdominal Exam: Normal Bowel Sounds, Soft, Non-Tender, No Distention, No Abnormal Bruit (Male) Exam: Deferred Back Exam: Normal Inspection, Full Range of Motion Extremities: Normal Capillary Refill, Leg Pain, Limited Range of Motion, Other ( Bandage in place on left leg. Cooling pack in place. ) Peripheral Pulses: 2+: Radial (L), Radial (R), Dorsalis Pedis (L), Dorsalis Pedis (R) Skin: Warm, Dry, Intact Wound/Incisions: Dressing Dry and Intact Neurological: No New Focal Deficit Psy/Mental Status: Alert, Normal Affect, Normal Mood Sepsis Event Note - Evaluation Sepsis Screening Result: No Definite Risk - Focused Exam Vital Signs: Vital Signs Temp Pulse Pulse Resp BP BP Pulse Ox 02/15/19 02:33 97.9 F 64 16 126/90 97 02/15/19 02:23 98.1 F 60 16 118/71 93 L 02/15/19 00:00 98 14 113/68 97 02/14/19 23:44 64 97 02/14/19 21:02 02/14/19 20:49 25 L 92 L 02/14/19 20:48 51 L 92 L 02/14/19 20:32 65 137/74 95 02/14/19 20:28 64 95 02/14/19 20:27 98.2 F 64 12 130/73 93 L 02/14/19 20:02 70 125/80 95 02/14/19 19:47 69 132/68 94 L 02/14/19 19:32 70 118/72 96 Pulse Ox 02/15/19 02:33 02/15/19 02:23 02/15/19 00:00 02/14/19 23:44 02/14/19 21:02 93 L 02/14/19 20:49 02/14/19 20:48 02/14/19 20:32 02/14/19 20:28 02/14/19 20:27 02/14/19 20:02 02/14/19 19:47 02/14/19 19:32 Date Exam was Performed: 02/15/19 Time Exam was Performed: 09:45 Consult PN Assessment/Plan POD#: 1 Procedures: Procedures ASSAY OF BLOOD/URIC ACID (10/23/15) ASSAY OF LIPASE (02/01/18) ASSAY OF PREALBUMIN (02/03/19) ASSAY OF PSA TOTAL (03/07/15) ASSAY THYROID STIM HORMONE (05/12/17) BL SMEAR W/DIFF WBC COUNT (02/01/18) CARDIOVASCULAR STRESS TEST (02/11/19) COMPLETE CBC AUTOMATED (02/01/18) COMPLETE CBC W/AUTO DIFF WBC (02/03/19) COMPREHEN METABOLIC PANEL (02/03/19) CT ABD & PELV W/CONTRAST (02/01/18) CT ABDOMEN W/O DYE (07/07/17) CT THORAX W/O DYE (07/07/17) EMERGENCY DEPT VISIT (02/01/18) EMERGENCY DEPT VISIT (04/29/17) HT MUSCLE IMAGE SPECT MULT (02/11/19) HYDRATE IV INFUSION ADD-ON (02/01/18) LIPID PANEL (05/12/17) PROTHROMBIN TIME (02/03/19) ROUTINE VENIPUNCTURE (02/01/18) THER/PROPH/DIAG INJ IV PUSH (02/01/18) THROMBOPLASTIN TIME PARTIAL (02/03/19) TTE W/DOPPLER COMPLETE (02/11/19) TX/PRO/DX INJ NEW DRUG ADDON (02/01/18) URINALYSIS AUTO W/SCOPE (02/01/18) URINE CULTURE/COLONY COUNT (02/16/18) X-RAY EXAM CHEST 2 VIEWS (02/03/19) X-RAY EXAM OF ELBOW (10/23/15) X-RAY EXAM RIBS UNI 2 VIEWS (04/28/17) (1) S/P total knee arthroplasty SNOMED Code(s): 8167532851022, 244491422, 8712643531711 Code(s): Z96.659 - PRESENCE OF UNSPECIFIED ARTIFICIAL KNEE JOINT Priority: High Current Visit: Yes Qualifiers: Laterality: left Qualified Code(s): Z96.652 - Presence of left artificial knee joint (2) Osteoarthritis SNOMED Code(s): 623262229 Code(s): M19.90 - UNSPECIFIED OSTEOARTHRITIS, UNSPECIFIED SITE Priority: High Current Visit: Yes Qualifiers: Osteoarthritis location: knee Osteoarthritis type: primary Laterality: bilateral Qualified Code(s): M17.0 - Bilateral primary osteoarthritis of knee (3) HLD (hyperlipidemia) SNOMED Code(s): 04866493 Code(s): E78.5 - HYPERLIPIDEMIA, UNSPECIFIED Priority: Low Current Visit : No Qualifiers: Hyperlipidemia type: unspecified Qualified Code(s): E78.5 - Hyperlipidemia , unspecified (4) HTN (hypertension) SNOMED Code(s): 99021089 Code(s): I10 - ESSENTIAL (PRIMARY) HYPERTENSION Priority: Medium Current Visit: No Qualifiers: Hypertension type: unspecified Qualified Code(s): I10 - Essential (primary ) hypertension (5) BPH (benign prostatic hyperplasia) SNOMED Code(s): 667970353 Code(s): N40.0 - BENIGN PROSTATIC HYPERPLASIA WITHOUT LOWER URINRY TRACT SYMP Priority: Low Current Visit: No Qualifiers: Lower urinary tract symptom presence: unspecified whether lower urinary tract symptoms present Qualified Code(s): N40.0 - Benign prostatic hyperplasia without lower urinary tract symptoms (6) Hypokalemia SNOMED Code(s): 64568044 Code(s): E87.6 - HYPOKALEMIA Priority: Low Current Visit: No (7) GERD (gastroesophageal reflux disease) SNOMED Code(s): 843138327 Code(s): K21.9 - GASTRO-ESOPHAGEAL REFLUX DISEASE WITHOUT ESOPHAGITIS Priority: Low Current Visit: No Qualifiers: Esophagitis presence: esophagitis presence not specified Qualified Code(s) : K21.9 - Gastro-esophageal reflux disease without esophagitis (8) Leukocytosis SNOMED Code(s): 674777838, 412377857 Code(s): D72.829 - ELEVATED WHITE BLOOD CELL COUNT, UNSPECIFIED Priority: Low Current Visit: No Qualifiers: Leukocytosis type: unspecified Qualified Code(s): D72.829 - Elevated white blood cell count, unspecified (9) S/P subtotal parathyroidectomy SNOMED Code(s): 693351402376018, 253097205387698 Code(s): Z98.890 - OTHER SPECIFIED POSTPROCEDURAL STATES Priority: Low Current Visit: No (10) Diverticulitis SNOMED Code(s): 819786887 Code(s): K57.92 - DVTRCLI OF INTEST, PART UNSP, W/O PERF OR ABSCESS W/O BLEED Priority: Low Current Visit: No (11) Hematuria SNOMED Code(s): 97840597 Code(s): R31.9 - HEMATURIA, UNSPECIFIED Priority: Low Current Visit: No Qualifiers: Hematuria type: unspecified type Qualified Code(s): R31.9 - Hematuria, unspecified Problem List Initiated/Reviewed/Updated: Yes My Orders Last 24 Hours: My Active Orders 02/14/19 16:12 Patient Status [ADT] Routine Plan: I/P: Acute: S/P left total knee arthroplasty - post-operative day 1 -DVT prophylaxis and pain management per primary care team -PT/OT -IS/RT -Monitor oxygen saturation -Titrate oxygen as needed -Home medications reviewed -Vital signs stable -Monitor labs -Pre-operative Hgb was 17.1; Now 14.2 -Pre-operative GFR was 55; Now 47 -Pre-operative Creatinine was 1.3; Now 1.5 -Pre-operative BUN was 20; Now 21 -Pre-operative WBC was 9.16; Now 14.15 (likely 2/2 stress and steroid injection) -Pre-operative Alk phos was 122; Now 94 -Pre-operative potassium was 3.4; Now 4.6 Osteoarthritis of Bilateral knees -Pain management per primary care team S/P cortisone injection in left knee -Management per primary team Chronic: Theroglossal cyst HLD BPH HTN Hypokalemia Diverticulitis GERD Hematuria Leukocytosis Sub total parathyroidectomy Nocturia Plan: Telemetry CM for discharge planning GI prophylaxis Home medications as indicated Other orders as listed above Routine AM labs He is a full code. His PCP is Anusha Adamson NP From a hospitalist standpoint Duarte is doing well. Per nursing he did fall on his buttocks last night. Primary team was notified and patient did reportedly ambulate shortly after without pain. No imaging was ordered and patient did not report any acute pain. He has been doing well since. This morning he has been up ambulating and working with therapies. He is off of oxygen and has urinated. His labs and vital signs remain stable. He has been utilizing his IS and pain is controlled. He is cleared for discharge pending primary team and PT/OT agreement. Thank you for allowing us to participate in the care of this patient!!
--- NOTE | 2019-02-15 08:02 | PCM48HPAN ---
Post Anesthesia Note - EVALUATION WITHIN 48HRS OF ANESTHETIC Vital Signs in Normal Range: Yes Patient Participated in Evaluation: Yes Respiratory Function Stable: Yes Airway Patent: Yes Cardiovascular Function Stable: Yes Hydration Status Stable: Yes Pain Control Satisfactory: Yes Nausea and Vomiting Control Satisfactory: Yes Mental Status Recovered: Yes Vital Signs: Last Vital Signs Temp 97.9 F 02/15/19 02:33 Pulse 64 02/15/19 02:33 Resp 16 02/15/19 02:33 BP 126/90 02/15/19 02:33 Pulse Ox 91 L 02/15/19 07:15 - COMMENTS/OBSERVATIONS Free Text/Narrative:: denies nausea. Pain controlled
[2019-02-15] MEDS: Famotidine 20 MG Tab PO SCH (08:33)
[2019-02-15] MEDS ORDERED: UBIDECARENONE 10 MG PO SCH (09:00)
[2019-02-15] MEDS ORDERED: Aspirin 325 MG Tab.EC PO SCH (09:00)
[2019-02-15] MEDS ORDERED: Non-Formulary Medication 1 Each (Lutein [Lutein] 6 MG) PO SCH (09:00)
[2019-02-15] MEDS ORDERED: Ketorolac 15 MG/ML SDV IVPUSH ONE (13:40)
--- NOTE | 2019-02-17 13:44 | PCM.SURGPN ---
- General Info Date of Service: 02/15/19 POD#: 1 Functional Status: Reports: Pain Controlled, Tolerating Diet, Ambulating, Urinating, Incentive Spirometry, Other (The pt states he is moving well today.) - Patient Data Vitals - Most Recent: Last Vital Signs Temp 98.2 F 02/15/19 11:45 Pulse 87 02/15/19 11:45 Resp 16 02/15/19 11:45 BP 98/61 02/15/19 11:45 Pulse Ox 94 L 02/15/19 11:45 Weight - Most Recent: 229 lb Med Orders - Current: Current Medications Discontinued Medications Acetaminophen (Tylenol) 975 mg PO ONETIME ONE Stop: 02/14/19 07:01 Last Admin: 02/14/19 22:57 Dose: Not Given Acetaminophen (Tylenol) 975 mg PO ONETIME ONE Stop: 02/14/19 12:01 Last Admin: 02/14/19 11:46 Dose: 975 mg Aspirin (Ecotrin) 325 mg PO BID [facility] Last Admin: 02/15/19 08:33 Dose: 325 mg Bisacodyl (Dulcolax) 5 mg PO DAILY PRN PRN Reason: Constipation Bupivacaine HCl (Sensorcaine-Mpf 0.25%) Confirm Administered Dose 30 ml .ROUTE .STK-MED ONE Stop: 02/14/19 12:37 Last Admin: 02/14/19 15:13 Dose: 30 ml Bupivacaine HCl (Sensorcaine-Mpf 0.25%) Confirm Administered Dose 10 ml .ROUTE .STK-MED ONE Stop: 02/14/19 12:38 Last Admin: 02/14/19 15:28 Dose: 4 ml Cefazolin Sodium (Ancef) Confirm Administered Dose 2 gm .ROUTE .STK-MED ONE Stop: 02/14/19 11:54 Cefazolin Sodium (Ancef) Confirm Administered Dose 2 gm .ROUTE .STK-MED ONE Stop: 02/14/19 12:37 Last Admin: 02/14/19 15:06 Dose: 2 gm Cholecalciferol (Vitamin D3) 5,000 unit PO DAILY@1900 [facility] Last Admin: 02/14/19 18:35 Dose: 5,000 unit Morphine Sulfate 8 mg/Epinephrine HCl 0.3 mg/Cefuroxime Sodium 750 mg/Ketorolac Tromethamine 30 mg/Sodium Chloride 27.9 ml 0 mg .XX ONETIME ONE Stop: 02/14/19 08:01 Last Admin: 02/14/19 15:12 Dose: 788.3 mg Cyclobenzaprine HCl (Flexeril) 10 mg PO TID PRN PRN Reason: Spasms Last Admin: 02/15/19 12:01 Dose: 10 mg Dexamethasone (Dexamethasone) Confirm Administered Dose 20 mg .ROUTE .STK-MED ONE Stop: 02/14/19 11:55 Ephedrine Sulfate (Ephedrine In Ns) Confirm Administered Dose 25 mg .ROUTE .STK- MED ONE Stop: 02/14/19 12:02 Ephedrine Sulfate (Ephedrine In Ns) Confirm Administered Dose 25 mg .ROUTE .STK- MED ONE Stop: 02/14/19 14:42 Ephedrine Sulfate (Ephedrine Sulfate) 5 mg IVPUSH ASDIRECTED PRN PRN Reason: Hypotension Stop: 02/14/19 18:00 Famotidine (Pepcid) 20 mg PO Q12H [facility] Last Admin: 02/15/19 08:33 Dose: 20 mg Fentanyl (Sublimaze) Confirm Administered Dose 100 mcg .ROUTE .STK-MED ONE Stop: 02/14/19 11:51 Fentanyl (Sublimaze) 50 mcg IVPUSH Q5M PRN PRN Reason: pain Stop: 02/14/19 18:00 Finasteride (Proscar) 5 mg PO DAILY@1900 [facility] Last Admin: 02/14/19 18:35 Dose: 5 mg Lactated Ringer's (Ringers, Lactated) 1,000 mls @ 125 mls/hr IV ASDIRECTED [facility] Stop: 02/14/19 23:00 Last Admin: 02/14/19 12:00 Dose: 125 mls/hr Cefazolin Sodium/Dextrose 2 gm (/ Premix) 50 mls @ 100 mls/hr IV Q8H [facility] Stop: 02/15/19 12:59 Last Admin: 02/15/19 12:02 Dose: 100 mls/hr Lidocaine HCl (Xylocaine-Mpf 1%) Confirm Administered Dose 4 mls @ as directed .ROUTE .STK-MED ONE Stop: 02/14/19 11:53 Lactated Ringer's (Ringers, Lactated) Confirm Administered Dose 1,000 mls @ as directed .ROUTE .STK-MED ONE Stop: 02/14/19 14:41 Lactated Ringer's (Ringers, Lactated) Confirm Administered Dose 1,000 mls @ as directed .ROUTE .STK-MED ONE Stop: 02/14/19 15:33 Iodine (Iodine 2% Mild Tincture) Confirm Administered Dose 30 ml .ROUTE .STK- MED ONE Stop: 02/14/19 12:37 Last Admin: 02/14/19 15:05 Dose: 18 ml Ketorolac Tromethamine (Toradol) 15 mg IVPUSH Q6H PRN PRN Reason: Pain Last Admin: 02/15/19 03:45 Dose: 15 mg Ketorolac Tromethamine (Toradol) Confirm Administered Dose 30 mg .ROUTE .STK- MED ONE Stop: 02/14/19 11:55 Ketorolac Tromethamine (Toradol) 15 mg IVPUSH ONETIME ONE Stop: 02/15/19 13:41 Last Admin: 02/15/19 13:55 Dose: 15 mg Lidocaine/Sodium Bicarbonate (Buffered Lidocaine 1% In Ns 8.4%) 0.25 ml IDERM ONETIME PRN PRN Reason: Prior to IV Start Stop: 02/14/19 18:00 Magnesium Hydroxide (Milk Of Magnesia) 30 ml PO BID PRN PRN Reason: Constipation Midazolam HCl (Versed 1 Mg/Ml) Confirm Administered Dose 2 mg .ROUTE .STK-MED ONE Stop: 02/14/19 11:52 Morphine Sulfate (Morphine) 2 mg IVPUSH Q2H PRN PRN Reason: Breakthrough Pain Naloxone HCl (Narcan) 0.1 mg IVPUSH Q5M PRN PRN Reason: Oversedation Non-Formulary Medication (Lutein [Lutein]) 6 mg PO DAILY [facility] Non-Formulary Medication (Ubidecarenone) 10 mg PO DAILY [facility] Ondansetron HCl (Zofran) 4 mg IVPUSH Q6H PRN PRN Reason: Nausea/Vomiting Ondansetron HCl (Zofran) Confirm Administered Dose 4 mg .ROUTE .STK-MED ONE Stop: 02/14/19 11:55 Oxycodone HCl (Oxycontin) 10 mg PO ONETIME [facility] Stop: 02/14/19 12:00 Last Admin: 02/14/19 11:46 Dose: 10 mg Oxycodone/Acetaminophen (Percocet 325-5 Mg) 1 - 2 tab PO Q4H PRN PRN Reason: Pain Last Admin: 02/15/19 11:21 Dose: 2 tab Pregabalin (Lyrica) 50 mg PO ONETIME [facility] Stop: 02/14/19 12:00 Last Admin: 02/14/19 11:46 Dose: 50 mg Propofol (Diprivan 20 Ml) Confirm Administered Dose 600 mg .ROUTE .STK-MED ONE Stop: 02/14/19 11:51 Propofol (Diprivan 20 Ml) Confirm Administered Dose 200 mg .ROUTE .STK-MED ONE Stop: 02/14/19 12:58 Ropivacaine (Naropin 0.5%) Confirm Administered Dose 30 ml .ROUTE .STK-MED ONE Stop: 02/14/19 11:26 Senna (Senna) 8.6 mg PO BID PRN PRN Reason: Constipation Simvastatin (Zocor) 20 mg PO BEDTIME [facility] Last Admin: 02/14/19 20:57 Dose: 20 mg Sodium Chloride (Saline Flush) 10 ml FLUSH ASDIRECTED PRN PRN Reason: Keep Vein Open Stop: 02/14/19 18:00 Tamsulosin HCl (Flomax) 0.4 mg PO DAILY@1900 [facility] Last Admin: 02/14/19 18:35 Dose: 0.4 mg Tranexamic Acid (Cyklokapron) Confirm Administered Dose 1,000 mg .ROUTE .STK- MED ONE Stop: 02/14/19 12:37 Last Admin: 02/14/19 15:15 Dose: 1,000 mg Triamcinolone Acetonide (Kenalog-40) Confirm Administered Dose 80 mg .ROUTE .STK -MED ONE Stop: 02/14/19 12:38 Last Admin: 02/14/19 15:28 Dose: 80 mg Vancomycin HCl (Vancomycin) Confirm Administered Dose 1 gm .ROUTE .STK-MED ONE Stop: 02/14/19 12:37 Last Admin: 02/14/19 15:14 Dose: 1 gm - Exam Wound/Incisions: Dressing Dry and Intact General: Alert, Cooperative, No Acute Distress Lungs: Normal Respiratory Effort Extremities: Other (NVS intact for BLE. Abran's negative for BLE.) Sepsis Event Note - Evaluation Sepsis Screening Result: No Definite Risk - Problem List Review Problem List Initiated/Reviewed/Updated: Yes - Assessment Assessment (Free Text/Narrative):: POD#1 - left TKA with right knee cortisone injection - Plan Plan (Free Text/Narrative):: 1. Hgb 14.2. 2. Discharge to home today. 3. 325mg ASA PO BID, frequent mobility, TEDs. 4. Outpatient therapy. The pt's case was discussed with Dr. Sanders.
--- NOTE | 2019-02-17 13:47 | PCM.DCSUM1 ---
Discharge Summary - Hospital Course Brief History: Duarte is a 63 yo male who underwent left TKA with right knee cortisone injection with Dr. Sanders on 02-14-2019. The procedure was completed under spinal anesthesia with sedation. The pt tolerated the procedure well and was admitted to the Medical-Surgical Unit. Medical management was provided by the Hospitalist service. The pt's Hospital course was remarkable for decrease in GFR noted post-operatively and this was monitored and treated by the Hospitalist service. The pt's Hgb on POD#1 was 14.2. On POD#1, 325mg ASA BID was initiated for VTE prophylaxis. SCDs and TEDs were also ordered. A Mepilex dressing was placed at the incision site at the time of surgery and remained clean and dry. The pt participated in P.T. and O.T. The pt was allowed to WBAT and used a FWW for mobility. On POD#1, the pt was deemed appropriate to discharge to home with his . - Discharge Data Discharge Date: 02/15/19 Discharge Disposition: Home, Self-Care 01 Condition: Good - Referral to Home Health Primary Care Physician: Anusha Adamson NP - Patient Summary/Data Consults: Consultations 02/14/19 06:27 OT Evaluation and Treatment [CONS] Routine PT Evaluation and Treatment [CONS] Routine 02/14/19 06:28 Consult to Physician [CONS] Routine - Patient Instructions Diet: Usual Diet as Tolerated Activity: Apply Ice, As Tolerated, Elevate Extremity, Full Weight Bearing Driving: Do Not Drive Showering/Bathing: May Shower Wound/Incision Care: Keep Operative Site/Wound Site Clean and Dry, Do NOT Change Dressing Notify Provider of: Fever, Increased Pain, Swelling and Redness, Drainage, Nausea and/or Vomiting Other/Special Instructions: Please get up and moving around EVERY HOUR while awake. This helps to prevent blood clots. Please use your walker and have help with mobility as needed. Take a short walk in your home every hour while awake. Please take 325mg Aspirin TWICE daily. The aspirin is being used for blood clot prevention and not for pain management so please do not miss a dose of the medication. You could use a medication like Pepcid or Tagamet and a medication like Prilosec or Nexium to protect your stomach while you are using the aspirin. At home, please complete the exercises that you learned during the Hospital stay. Schedule for physical therapy. Use the pain medication as needed. The medication may cause drowsiness and constipation. Contact your primary care provider for instructions if you are constipated. You may use a stool softener like docusate sodium or Colace 100mg twice daily and/or a laxative like Miralax daily for constipation. Increase your water and fiber intake while you are using the pain medication. Discontinue use of the pain medication as soon as able. Please do not use other medications that may cause drowsiness (other pain medications, anxiety pills, cold medications, sleeping pills, etc) while using the prescription pain medication. Do not use alcohol while using the pain medication. You may use acetaminophen or Tylenol for pain management, however, please ensure you are not using over 4000 mg or 4 grams of acetaminophen per day from all sources. Your pain medication has 325mg of acetaminophen per tablet. At this time, please do not use ibuprofen (Motrin, Advil) or naproxen (Aleve) for pain management as you are using the aspirin. When the aspirin course is completed in 4 to 6 weeks, you could use ibuprofen or naproxen for pain management (if this is allowed by your primary care provider). Wear the DAX hose during the day and you may remove these at night. Elevate the limb to decrease swelling. Place ice to the area often. Place a towel between your skin and the blue pad. Use the incentive spirometer often. Take deep breaths throughout the day. Please keep the dressing in place until follow-up. Notify the Clinic if the dressing becomes saturated. Increase your protein intake while you are healing. If you have diabetes, please closely monitor your blood sugars and notify your primary care provider with abnormal values. Elevated blood sugars increases the risk of infection. You may resume use of fish oil in 2 weeks. Your prescriptions were sent to the [facility]. Call the Clinic with questions or concerns - [phone]. - Discharge Plan *PRESCRIPTION DRUG MONITORING PROGRAM REVIEWED*: No *COPY OF PRESCRIPTION DRUG MONITORING REPORT IN PATIENT GIOVANNI: No Prescriptions/Med Rec: Acetaminophen/oxyCODONE [Percocet 325-5 MG] 1 - 2 tab PO Q4H PRN #60 tablet PRN Reason: Pain Aspirin [Ecotrin EC] 325 mg PO BID #84 tab.ec Cyclobenzaprine [Flexeril] 10 mg PO TID PRN #20 tablet PRN Reason: Spasms Home Medications: Home Meds Lutein 6 mg PO DAILY 02/01/18 [History] Tamsulosin HCl 1 tab PO DAILY 02/01/18 [History] Ubidecarenone [Coenzyme Q-10] 10 mg PO DAILY 02/01/18 [History] atorvaSTATin [Lipitor] 20 mg PO BEDTIME 02/01/18 [History] Cholecalciferol (Vitamin D3) [Vitamin D3] 5,000 unit PO DAILY 02/14/19 [History] Finasteride 5 mg PO DAILY 02/14/19 [History] lisinopriL [Lisinopril] 10 mg PO DAILY 02/14/19 [History] Acetaminophen/oxyCODONE [Percocet 325-5 MG] 1 - 2 tab PO Q4H PRN #60 tablet [Rx] Aspirin [Ecotrin EC] 325 mg PO BID #84 tab.ec 02/15/19 [Rx] Cyclobenzaprine [Flexeril] 10 mg PO TID PRN #20 tablet 02/15/19 [Rx] Famotidine [Pepcid] 20 mg PO Q12H tablet 02/15/19 [Rx] Magnesium Hydroxide [Milk of Magnesia] 30 ml PO BID PRN cup 02/15/19 [Rx] Sennosides [Senna] 8.6 mg PO BID PRN tablet 02/15/19 [Rx] bisacodyL [Dulcolax] 5 mg PO DAILY PRN tablet 02/15/19 [Rx] Patient Handouts: Total Knee Replacement, [id number], Aspirin, ASA oral tablets Referrals: Inga Young PA-C [Physician Distributor Sales Consultant] - - Discharge Summary/Plan Comment DC Time >30 min.: No - Patient Data Vitals - Most Recent: Last Vital Signs Temp 98.2 F 02/15/19 11:45 Pulse 87 02/15/19 11:45 Resp 16 02/15/19 11:45 BP 98/61 02/15/19 11:45 Pulse Ox 94 L 02/15/19 11:45 Weight - Most Recent: 229 lb Med Orders - Current: Current Medications Discontinued Medications Acetaminophen (Tylenol) 975 mg PO ONETIME ONE Stop: 02/14/19 07:01 Last Admin: 02/14/19 22:57 Dose: Not Given Acetaminophen (Tylenol) 975 mg PO ONETIME ONE Stop: 02/14/19 12:01 Last Admin: 02/14/19 11:46 Dose: 975 mg Aspirin (Ecotrin) 325 mg PO BID PENDING SALE TO [facility] Last Admin: 02/15/19 08:33 Dose: 325 mg Bisacodyl (Dulcolax) 5 mg PO DAILY PRN PRN Reason: Constipation Bupivacaine HCl (Sensorcaine-Mpf 0.25%) Confirm Administered Dose 30 ml .ROUTE .STK-MED ONE Stop: 02/14/19 12:37 Last Admin: 02/14/19 15:13 Dose: 30 ml Bupivacaine HCl (Sensorcaine-Mpf 0.25%) Confirm Administered Dose 10 ml .ROUTE .STK-MED ONE Stop: 02/14/19 12:38 Last Admin: 02/14/19 15:28 Dose: 4 ml Cefazolin Sodium (Ancef) Confirm Administered Dose 2 gm .ROUTE .STK-MED ONE Stop: 02/14/19 11:54 Cefazolin Sodium (Ancef) Confirm Administered Dose 2 gm .ROUTE .STK-MED ONE Stop: 02/14/19 12:37 Last Admin: 02/14/19 15:06 Dose: 2 gm Cholecalciferol (Vitamin D3) 5,000 unit PO DAILY@1900 PENDING SALE TO [facility] Last Admin: 02/14/19 18:35 Dose: 5,000 unit Morphine Sulfate 8 mg/Epinephrine HCl 0.3 mg/Cefuroxime Sodium 750 mg/Ketorolac Tromethamine 30 mg/Sodium Chloride 27.9 ml 0 mg .XX ONETIME ONE Stop: 02/14/19 08:01 Last Admin: 02/14/19 15:12 Dose: 788.3 mg Cyclobenzaprine HCl (Flexeril) 10 mg PO TID PRN PRN Reason: Spasms Last Admin: 02/15/19 12:01 Dose: 10 mg Dexamethasone (Dexamethasone) Confirm Administered Dose 20 mg .ROUTE .STK-MED ONE Stop: 02/14/19 11:55 Ephedrine Sulfate (Ephedrine In Ns) Confirm Administered Dose 25 mg .ROUTE .STK- MED ONE Stop: 02/14/19 12:02 Ephedrine Sulfate (Ephedrine In Ns) Confirm Administered Dose 25 mg .ROUTE .STK- MED ONE Stop: 02/14/19 14:42 Ephedrine Sulfate (Ephedrine Sulfate) 5 mg IVPUSH ASDIRECTED PRN PRN Reason: Hypotension Stop: 02/14/19 18:00 Famotidine (Pepcid) 20 mg PO Q12H PENDING SALE TO [facility] Last Admin: 02/15/19 08:33 Dose: 20 mg Fentanyl (Sublimaze) Confirm Administered Dose 100 mcg .ROUTE .STK-MED ONE Stop: 02/14/19 11:51 Fentanyl (Sublimaze) 50 mcg IVPUSH Q5M PRN PRN Reason: pain Stop: 02/14/19 18:00 Finasteride (Proscar) 5 mg PO DAILY@1900 PENDING SALE TO [facility] Last Admin: 02/14/19 18:35 Dose: 5 mg Lactated Ringer's (Ringers, Lactated) 1,000 mls @ 125 mls/hr IV ASDIRECTED PENDING SALE TO [facility] Stop: 02/14/19 23:00 Last Admin: 02/14/19 12:00 Dose: 125 mls/hr Cefazolin Sodium/Dextrose 2 gm (/ Premix) 50 mls @ 100 mls/hr IV Q8H PENDING SALE TO [facility] Stop: 02/15/19 12:59 Last Admin: 02/15/19 12:02 Dose: 100 mls/hr Lidocaine HCl (Xylocaine-Mpf 1%) Confirm Administered Dose 4 mls @ as directed .ROUTE .STK-MED ONE Stop: 02/14/19 11:53 Lactated Ringer's (Ringers, Lactated) Confirm Administered Dose 1,000 mls @ as directed .ROUTE .STK-MED ONE Stop: 02/14/19 14:41 Lactated Ringer's (Ringers, Lactated) Confirm Administered Dose 1,000 mls @ as directed .ROUTE .STK-MED ONE Stop: 02/14/19 15:33 Iodine (Iodine 2% Mild Tincture) Confirm Administered Dose 30 ml .ROUTE .STK- MED ONE Stop: 02/14/19 12:37 Last Admin: 02/14/19 15:05 Dose: 18 ml Ketorolac Tromethamine (Toradol) 15 mg IVPUSH Q6H PRN PRN Reason: Pain Last Admin: 02/15/19 03:45 Dose: 15 mg Ketorolac Tromethamine (Toradol) Confirm Administered Dose 30 mg .ROUTE .STK- MED ONE Stop: 02/14/19 11:55 Ketorolac Tromethamine (Toradol) 15 mg IVPUSH ONETIME ONE Stop: 02/15/19 13:41 Last Admin: 02/15/19 13:55 Dose: 15 mg Lidocaine/Sodium Bicarbonate (Buffered Lidocaine 1% In Ns 8.4%) 0.25 ml IDERM ONETIME PRN PRN Reason: Prior to IV Start Stop: 02/14/19 18:00 Magnesium Hydroxide (Milk Of Magnesia) 30 ml PO BID PRN PRN Reason: Constipation Midazolam HCl (Versed 1 Mg/Ml) Confirm Administered Dose 2 mg .ROUTE .STK-MED ONE Stop: 02/14/19 11:52 Morphine Sulfate (Morphine) 2 mg IVPUSH Q2H PRN PRN Reason: Breakthrough Pain Naloxone HCl (Narcan) 0.1 mg IVPUSH Q5M PRN PRN Reason: Oversedation Non-Formulary Medication (Lutein [Lutein]) 6 mg PO DAILY PENDING SALE TO [facility] Non-Formulary Medication (Ubidecarenone) 10 mg PO DAILY PENDING SALE TO [facility] Ondansetron HCl (Zofran) 4 mg IVPUSH Q6H PRN PRN Reason: Nausea/Vomiting Ondansetron HCl (Zofran) Confirm Administered Dose 4 mg .ROUTE .STK-MED ONE Stop: 02/14/19 11:55 Oxycodone HCl (Oxycontin) 10 mg PO ONETIME ELVA Stop: 02/14/19 12:00 Last Admin: 02/14/19 11:46 Dose: 10 mg Oxycodone/Acetaminophen (Percocet 325-5 Mg) 1 - 2 tab PO Q4H PRN PRN Reason: Pain Last Admin: 02/15/19 11:21 Dose: 2 tab Pregabalin (Lyrica) 50 mg PO ONETIME ELVA Stop: 02/14/19 12:00 Last Admin: 02/14/19 11:46 Dose: 50 mg Propofol (Diprivan 20 Ml) Confirm Administered Dose 600 mg .ROUTE .STK-MED ONE Stop: 02/14/19 11:51 Propofol (Diprivan 20 Ml) Confirm Administered Dose 200 mg .ROUTE .STK-MED ONE Stop: 02/14/19 12:58 Ropivacaine (Naropin 0.5%) Confirm Administered Dose 30 ml .ROUTE .STK-MED ONE Stop: 02/14/19 11:26 Senna (Senna) 8.6 mg PO BID PRN PRN Reason: Constipation Simvastatin (Zocor) 20 mg PO BEDTIME PENDING SALE TO [facility] Last Admin: 02/14/19 20:57 Dose: 20 mg Sodium Chloride (Saline Flush) 10 ml FLUSH ASDIRECTED PRN PRN Reason: Keep Vein Open Stop: 02/14/19 18:00 Tamsulosin HCl (Flomax) 0.4 mg PO DAILY@1900 PENDING SALE TO [facility] Last Admin: 02/14/19 18:35 Dose: 0.4 mg Tranexamic Acid (Cyklokapron) Confirm Administered Dose 1,000 mg .ROUTE .STK- MED ONE Stop: 02/14/19 12:37 Last Admin: 02/14/19 15:15 Dose: 1,000 mg Triamcinolone Acetonide (Kenalog-40) Confirm Administered Dose 80 mg .ROUTE .STK -MED ONE Stop: 02/14/19 12:38 Last Admin: 02/14/19 15:28 Dose: 80 mg Vancomycin HCl (Vancomycin) Confirm Administered Dose 1 gm .ROUTE .STK-MED ONE Stop: 02/14/19 12:37 Last Admin: 02/14/19 15:14 Dose: 1 gm
--- NOTE | 2019-02-17 16:00 | PCM.OPNOTE ---
- General Post-Op/Procedure Note Date of Surgery/Procedure: 02/14/19 Operative Procedure(s): left total knee arthroplasty with right knee corticosteroid injection Pre Op Diagnosis: bilateral knee osteoarthrosis Post-Op Diagnosis: Same Anesthesia Technique: Local, MAC, Spinal Primary Surgeon: Cornell Sanders Anesthesia Provider: Vidya Ashley Tongue And Groove Machine Feeder: Inga Young Tongue And Groove Machine Feeder: Lisseth Willams EBL in mLs: 300 Complications: None Condition: Good Free Text/Narrative:: 07/04 9mm 32x10
--- NOTE | 2019-02-18 09:17 | OR ---
DATE OF OPERATION: 02/14/2019 SURGEON: Cornell Sanders MD OPERATION PERFORMED: Left total knee arthroplasty with right knee corticosteroid injection. PREOPERATIVE DIAGNOSIS: Bilateral knee osteoarthrosis. POSTOPERATIVE DIAGNOSIS: Bilateral knee osteoarthrosis. ANESTHESIA: Local MAC with spinal. ANESTHESIA PROVIDER: Vidya Ashley. ASSISTANTS: Inga Young PA-C, and Lisseth Willams LPN. ESTIMATED BLOOD LOSS: 300 mL. COMPLICATIONS: None. CONDITION: Stable. IMPLANTS: 1. Martina size 5 press-fit CR femur. 2. Sunset size 9 mm CS polyethylene insert. 3. Sunset size 32 x 10 mm asymmetric press-fit patella. DESCRIPTION OF PROCEDURE: The patient was identified in the preop holding area. Proper site was marked and identified by the surgeon. The patient was taken back to the operating theater. After adequate anesthesia, the patient's left lower extremity had a nonsterile tourniquet applied and it was sterilely prepped and draped in the usual sterile fashion. OR time-out was performed. The patient received 2 g IV Ancef. At this time, the left lower extremity was exsanguinated. Tourniquet was insufflated to 300 mmHg. Standard medial parapatellar incision was made. Medial parapatellar arthrotomy was created. Deep fibers of the MCL were raised and anterior fat pad was resected. At this time, attention was turned to the patella. Patella measured 24, it was resected to a 14 for 32 x 10 mm patella. Drill holes were then drilled and found to be in adequate position. The drill was then drilled in the distal femur and the intramedullary distal femoral cutting guide was then placed. 8 mm was resected off the distal femur and was found to be an adequate resection. Sizing guide was placed. It was found to be a size 5 press-fit CR femur that was shown on the implant record at the beginning of this dictation. The drill holes were drilled for the epicondylar axis using Whitesides line and epicondyles as reference. At this time, the 4-in- 1 cutting block was placed. An anterior posterior and anterior and posterior chamfer cuts were then completed. Attention was turned to the tibia. The posterior medial lateral retractors were placed. The extramedullary tibial guide was placed. It was placed in the old footprint of the ACL. It was aligned with the center of the ankle and 0 degrees of slope, 9 mm was then resected off the unaffected side. There was found to be an acceptable reduction. At this time, posterior osteophytes were removed along with medial and lateral meniscus. A trial implant was placed with a correct sized tibia that was mentioned at the beginning of the dictation. A Martina size 9 mm CS polyethylene insert was then placed. The patient's knee was brought through range of motion. The patella was tracking centrally and was stable to varus and valgus stress. Alignment was found to be roughly at 0 degrees. The tibia was stamped and drilled in proper rotation. The universal tibial base plate was impacted in place. Next, the Sunset size 5 press-fit CR femur impacted into place and the Martina size 9 mm CS polyethylene insert was placed. The patient's knee was brought into full extension. The patella was then press-fit in place at this time. Tourniquet was deflated. One liter dilute Betadine solution was irrigated through the knee along with 3 L of pulse lavage irrigation with Ancef. Periarticular injection was then completed. The patient's knee was brought through a range of motion. Once the cement had time to set up and it was found to be stable to varus valgus stress, the patella was tracking centrally with full range of motion. At this time, a #2 barbed suture was used for closure of the medial parapatellar arthrotomy. Topical tranexamic acid was placed. 2-0 Vicryl was used subcutaneously, Prineo was used for the skin. The patient tolerated the procedure well and was sent to the PACU in stable condition. After this was completed under sterile technique, 2 mL of 40 mg Kenalog and 4 mL of 0.25% Marcaine were injected to right. The patient tolerated all procedures well. MMODAL /[id number]
== END 2019-02-15 15:15 | disposition home or self-care (01) | DRG 470 ==
LOC: JD.SDS 11:06 → JD.MS 11:08
PROVIDERS: ADMIT Orthopaedic Surgery; ATTEND Orthopaedic Surgery
PROC: 0SRD0JA Replacement of Left Knee Joint with Synthetic Substitute, Uncemented, Open Approach (ICD-10-PCS; principal; 2019-02-14)
PROC: 3E0U33Z Introduction of Anti-inflammatory into Joints, Percutaneous Approach (ICD-10-PCS; 2019-02-14)
DX: M17.12 Unilateral primary osteoarthritis, left knee (principal); M17.0 Bilateral primary osteoarthritis of knee; K57.92 Diverticulitis of intestine, part unspecified, without perforation or abscess without bleeding; K21.9 Gastro-esophageal reflux disease without esophagitis; N40.0 Benign prostatic hyperplasia without lower urinary tract symptoms; E78.5 Hyperlipidemia, unspecified; I10 Essential (primary) hypertension; E78.00 Pure hypercholesterolemia, unspecified; R31.9 Hematuria, unspecified; E87.6 Hypokalemia; Z79.82 Long term (current) use of aspirin; Z79.899 Other long term (current) drug therapy
CPT/HCPCS: 01402; 36415; 64450; 73560-26-LT; 73560-LT; 80053; 85027; 87641; 93005; 97110-GP; 97116-GP; 97161-GP; 97165-GO; 97535-GO; A9270-GY; C1776; J0171; J0690; J0697; J1100; J1885; J2001; J2250; J2270; J2405; J2704; J2795; J3010; J3301; J3370; J3490; J7050; J7120

== ENCOUNTER 2020-01-30 06:04 | Day surgery (SDC) | payer MEDICARE, OTHER ==
[~2020-01-30 06:04] MED LIST changes: -Bisacodyl 5 MG Tab PO PRN; -Magnesium Hydroxide 400 MG/5 ML Susp 30 ML Cup PO PRN; -Morphine 2 MG/ML Syringe IVPUSH PRN; -Naloxone 0.4 MG/ML SDV IVPUSH PRN; -Ondansetron 4 MG/2 ML SDV IVPUSH PRN; +Pregabalin 25 MG Cap PO ONE; -Pregabalin 25 MG Cap PO SCH; -Sennosides 8.6 MG Tab PO PRN; +oxyCODONE ER 10 MG TAB.ER PO ONE; -oxyCODONE ER 10 MG TAB.ER PO SCH
[2020-01-30] MEDS ORDERED: Vancomycin 1 GM SDV ONE (06:05)
[2020-01-30] MEDS ORDERED: Bupivacaine 0.25% 10 ML SDV ONE (06:05)
[2020-01-30] MEDS ORDERED: Morphine 8 MG, EPINEPHrine 0.3 MG, Cefuroxime 750 MG, Ketorolac 30 MG, Sodium Chloride ... PRN ×5 (06:46)
--- NOTE | 2020-01-30 06:56 | PCM.PREANE ---
Preanesthetic Assessment - Procedure Proposed Procedure: Right TKA - Anesthesia/Transfusion/Family Hx Anesthesia History: Prior Anesthesia Without Reaction Transfusion History: No Prior Transfusion(s) - Review of Systems General: No Symptoms Pulmonary: No Symptoms Cardiovascular: No Symptoms Gastrointestinal: No Symptoms Neurological: No Symptoms Other: Reports: None - Physical Assessment NPO Status Date: 01/29/20 NPO Status Time: 23:00 Vital Signs: Last Vital Signs Temp 97.0 F 01/30/20 06:15 Pulse 65 01/30/20 06:15 Resp 16 01/30/20 06:15 BP 143/85 H 01/30/20 06:15 Pulse Ox 96 01/30/20 06:15 Height: 1.68 m Weight: 101.151 kg ASA Class: 2 Mental Status: Alert & Oriented x3 Airway Class: Mallampati = 2 Dentition: Reports: Normal Dentition Thyro-Mental Finger Breadths: 3 Mouth Opening Finger Breadths: 3 ROM/Head Extension: Full Lungs: Clear to Auscultation, Normal Respiratory Effort Cardiovascular: Regular Rate, Regular Rhythm - Lab Values: Laboratory Last Values MRSA (PCR) Negative 01/18/20 14:22 - Allergies Allergies/Adverse Reactions: Allergies Allergy/AdvReac Type Severity Reaction Status Date / Time No Known Allergies Allergy Verified 01/25/20 09:15 - Acknowledgements Anesthesia Type Planned: Spinal, Regional Block (adductor canal) Pt an Appropriate Candidate for the Planned Anesthesia: Yes Alternatives and Risks of Anesthesia Discussed w Pt/Guardian: Yes Pt/Guardian Understands and Agrees with Anesthesia Plan: Yes PreAnesthesia Questionnaire HEENT History: Reports: Impaired Vision, Other (See Below) Other HEENT History: eye irritation Cardiovascular History: Reports: High Cholesterol, Hypertension Other Respiratory History: chest congestion, cough, URI Gastrointestinal History: Reports: GERD, Other (See Below) Other Gastrointestinal History: diverticulitis, heartburn, abdominal wall lipoma Genitourinary History: Reports: BPH, Other (See Below) Other Genitourinary History: nocturia, UTI HALFTONE OPERATOR History: Reports: None Musculoskeletal History: Reports: Osteoarthritis Other Musculoskeletal History: chronic pain, left elbow pain, rib pain Neurological History: Reports: Other (See Below) Other Neuro History: seasickness Psychiatric History: Reports: None Hematologic History: Reports: Other (See Below) Other Hematologic History: leukocytosis Immunologic History: Reports: None Oncologic (Cancer) History: Reports: None Dermatologic History: Reports: Other (See Below) Other Dermatologic History: skin lesion- ? per patient hx. - Infectious Disease History Infectious Disease History: Reports: None - Past Surgical History Other HEENT Surgeries/Procedures: theroglossal cyst Male Surgical History: Reports: None Endocrine Surgical History: Reports: Parathyroidectomy, Thyroid Biopsy - SUBSTANCE USE Tobacco Use Status *Q: Never Tobacco User Recreational Drug Use History: No - HOME MEDS Home Medications: Home Meds Tamsulosin HCl 1 tab PO DAILY 02/01/18 [History] Ubidecarenone [Coenzyme Q-10] 10 mg PO DAILY 02/01/18 [History] atorvaSTATin [Lipitor] 20 mg PO BEDTIME 02/01/18 [History] Cholecalciferol (Vitamin D3) [Vitamin D3] 5,000 unit PO DAILY 02/14/19 [History] Finasteride 5 mg PO QPM 02/14/19 [History] lisinopriL [Lisinopril] 20 mg PO DAILY 02/14/19 [History] Famotidine [Pepcid] 20 mg PO Q12H tablet 02/15/19 [Rx] Magnesium Hydroxide [Milk of Magnesia] 30 ml PO BID PRN cup 02/15/19 [Rx] Sennosides [Senna] 8.6 mg PO BID PRN tablet 02/15/19 [Rx] bisacodyL [Dulcolax] 5 mg PO DAILY PRN tablet 02/15/19 [Rx] Bifidobacterium Infantis [Align] 10.5 mg PO DAILY 01/25/20 [History] Lutein 20 mg PO DAILY 01/25/20 [History] Psyllium [Metamucil] 2 cap PO DAILY 01/25/20 [History] Zinc 50 mg PO DAILY 01/25/20 [History] hydroCHLOROthiazide [Hydrochlorothiazide] 20 mg PO DAILY 01/25/20 [History] Aspirin [Aspirin EC] 325 mg PO BID #84 tab 01/30/20 [Rx] Cyclobenzaprine [Flexeril] 10 mg PO BID PRN #20 tab 01/30/20 [Rx] oxyCODONE 5 - 10 mg PO Q4H PRN #60 tab 01/30/20 [Rx] - CURRENT (IN HOUSE) MEDS Current Meds: Current Medications Morphine Sulfate 8 mg/Epinephrine HCl 0.3 mg/Cefuroxime Sodium 750 mg/Ketorolac Tromethamine 30 mg/Sodium Chloride 7.9 ml 0 mg .XX ASDIRECTED PRN PRN Reason: Pain Lactated Ringer's (Ringers, Lactated) 1,000 mls @ 125 mls/hr IV ASDIRECTED ELVA Stop: 01/30/20 23:00 Last Admin: 01/30/20 06:41 Dose: 125 mls/hr Documented by: Lidocaine/Sodium Bicarbonate (Buffered Lidocaine 1% In Ns 8.4%) 0.25 ml IDERM ONETIME PRN PRN Reason: Prior to IV Start Stop: 01/30/20 18:00 Last Admin: 01/30/20 06:42 Dose: 0.25 ml Documented by: Sodium Chloride (Saline Flush) 10 ml FLUSH ASDIRECTED PRN PRN Reason: Keep Vein Open Stop: 01/30/20 18:00 Discontinued Medications Acetaminophen (Tylenol) 975 mg PO NOW ONE Stop: 01/30/20 06:01 Last Admin: 01/30/20 06:14 Dose: 975 mg Documented by: Bupivacaine HCl (Sensorcaine-Mpf 0.25%) Confirm Administered Dose 30 ml .ROUTE .STK-MED ONE Stop: 01/30/20 06:06 Oxycodone HCl (Oxycontin) 10 mg PO ONETIME ONE Stop: 01/30/20 06:01 Last Admin: 01/30/20 06:14 Dose: 10 mg Documented by: Pregabalin (Lyrica) 50 mg PO ONETIME ONE Stop: 01/30/20 06:01 Last Admin: 01/30/20 06:13 Dose: 50 mg Documented by: Tranexamic Acid (Cyklokapron) Confirm Administered Dose 1,000 mg .ROUTE .STK-MED ONE Stop: 01/30/20 06:06 Vancomycin HCl (Vancomycin) Confirm Administered Dose 1 gm .ROUTE .STK-MED ONE Stop: 01/30/20 06:06
[2020-01-30] MEDS ORDERED: Midazolam 1 MG/ML 2 ML SDV ONE (06:59)
[2020-01-30] MEDS ORDERED: Propofol 200 MG/20 ML SDV ONE (06:59)
[2020-01-30] MEDS ORDERED: ceFAZolin 1 GM Vial ONE (07:02)
[2020-01-30] MEDS ORDERED: Lidocaine 1% 4 ML ONE (07:17)
[2020-01-30] MEDS ORDERED: HYDROmorphone 0.5 MG/0.5 ML Syringe IVPUSH PRN (07:49)
[2020-01-30] MEDS ORDERED: fentaNYL 100 MCG/2 ML SDV IVPUSH PRN (07:49)
[2020-01-30] MEDS ORDERED: Ropivacaine 0.5% 5 MG/ML 30 ML SDV ONE (08:12)
[2020-01-30] MEDS ORDERED: Dexamethasone 4 MG/ML 5 ML MDV ONE (08:15)
[2020-01-30] MEDS ORDERED: Dexmedetomidine 200 MCG/2 ML SDV ONE (08:15)
[2020-01-30] MEDS ORDERED: Lactated Ringers 1,000 ML ONE (08:16)
--- NOTE | 2020-01-30 09:16 | PCM.POSTAN ---
POST ANESTHESIA ASSESSMENT - MENTAL STATUS Mental Status: Somnolent - VITAL SIGNS Vital Signs: Last Vital Signs Temp 98.0 F 01/30/20 08:42 Pulse 73 01/30/20 08:42 Resp 12 01/30/20 08:42 BP 86/52 L 01/30/20 08:42 Pulse Ox 95 01/30/20 08:42 - RESPIRATORY Respiratory Status: Respiratory Rate WNL, Airway Patent, O2 Saturation Stable, Supplemental Oxygen - CARDIOVASCULAR CV Status: Pulse Rate WNL, Blood Pressure Stable - GASTROINTESTINAL GI Status: No Symptoms - PAIN Pain Score: 0 (post SAB) - POST OP HYDRATION Hydration Status: Adequate & Stable
--- NOTE | 2020-01-30 09:21 | PCM.PRNOTE ---
- Free Text/Narrative Note: Postoperative regional pain control requested by surgeon. Pre-op Dx: Rt knee osteoarthritis. Post-op Rx: Total Rt knee arthroplasty. Procedure: Rt Adductor canal block with U/S guidance Requesting physician: Dr. Cornell Rios Risks and benefits discussed with the patient preoperatively including infection, bleeding, incomplete or failed block, possible nerve damage, local anesthetic toxicity. Permit signed. Patient after spinal anesthesia post surgery in PACU, stable , alert and awake. Time out performed. Right mid-thigh was prepped with Chloraprep x 1 and allowed to dry. Under aseptic technique, the right femoral artery and sartorius muscle were identified under ultrasound prior to needle insertion. 4" Stimuplex needle #22 G was inserted under US guidance. Under direct visualization of needle tip the injection of 0.5% Ropivacaine with 1:200k epinephrine (25 mls) with 30 mcg o f Dexmedetomidine and 6 mg of Dexamethasone, total of 28 mls in divided doses, maintaining negative aspiration was completed without problems. No local anesthetic toxicity was noted. Patient is awake, stable and tolerated the procedure well. Time: 09:04 - 09:10 Please see attached U/S pictures.
[2020-01-30] MEDS ORDERED: oxyCODONE 5 MG Tab PO SCH (09:53)
[2020-01-30] MEDS ORDERED: Cyclobenzaprine 10 MG Tab PO SCH (09:54)
--- NOTE | 2020-01-30 12:50 | PCM48HPAN ---
Post Anesthesia Note - EVALUATION WITHIN 48HRS OF ANESTHETIC Vital Signs in Normal Range: Yes Patient Participated in Evaluation: Yes Respiratory Function Stable: Yes Airway Patent: Yes Cardiovascular Function Stable: Yes Hydration Status Stable: Yes Pain Control Satisfactory: Yes Nausea and Vomiting Control Satisfactory: Yes Mental Status Recovered: Yes Vital Signs: Last Vital Signs Temp 98.6 F 01/30/20 11:50 Pulse 61 01/30/20 11:50 Resp 18 01/30/20 11:50 BP 119/68 01/30/20 11:50 Pulse Ox 92 L 01/30/20 11:50 - COMMENTS/OBSERVATIONS Free Text/Narrative:: Patient is ready for discharge home
--- NOTE | 2020-01-30 13:39 | CR ---
PROCEDURE INFORMATION: Exam: XR Right Knee Exam date and time: 01/30/2020 9:02 AM Age: 64 years old Clinical indication: Device placement; Joint replacement hardware; Prior surgery; Surgery date: Post-operative (0-2 days) TECHNIQUE: Imaging protocol: XR Right knee. Views: 1 or 2 views. COMPARISON: CR Knee 1V or 2V Rt 12/06/2019 2:57 PM FINDINGS: Bones/joints: A right total knee arthroplasty is present in anatomic alignment. No fractures are identified. Soft tissues: Normal. IMPRESSION: Status post right total knee arthroplasty in anatomic alignment. No fractures present. Thank you for allowing us to participate in the care of your patient. Dictated and Authenticated by: Ken Swanson MD 01/30/2020 10:44 AM Central Time ([place] & [place]) DIEUDONNE
--- NOTE | 2020-02-06 07:34 | PCM.OPNOTE ---
- General Post-Op/Procedure Note Date of Surgery/Procedure: 01/30/20 Operative Procedure(s): right total knee arthroplasty Pre Op Diagnosis: right knee osteoarthrosis Post-Op Diagnosis: Same Anesthesia Technique: Local, MAC, Spinal Primary Surgeon: Cornell Sanders Anesthesia Provider: Newton Black Phys Therapist: Inga Young Phys Therapist: Lisseth Willams EBEaston in mLs: 100 Complications: None Condition: Good Free Text/Narrative:: / 9mm 32x10
--- NOTE | 2020-02-07 14:30 | OR ---
DATE OF OPERATION: 01/30/2020 SURGEON: Cornell Sanders MD OPERATION PERFORMED: Right total knee arthroplasty. PREOPERATIVE DIAGNOSIS: Right knee osteoarthrosis. POSTOPERATIVE DIAGNOSIS: Right knee osteoarthrosis. ANESTHESIA: Local MAC with spinal. ANESTHESIA PROVIDER: Jana Valdes. GEAR DESIGN ENGINEER: Inga Young PA-C and Lisseth Willams LPN ESTIMATED BLOOD LOSS: 100 mL. COMPLICATIONS: None. CONDITION: Stable. IMPLANTS: 1. Martina size 5 press-fit CR femur. 2. [place] size 5 press-fit [place] tibial base plate. 3. Martina size 5, 9 mm CS polyethylene insert. 4. Martina size 32 x 10 mm asymmetric press fit patella. DESCRIPTION OF PROCEDURE: The patient was identified in the preop holding area. Proper site was marked and identified by the surgeon. The patient was taken back to the operating theater. After adequate anesthesia, the patient's right lower extremity had a nonsterile tourniquet applied and it was sterilely prepped and draped in the usual sterile fashion. OR time-out was performed. The patient received 2 g IV Ancef. At this time, the right lower extremity was exsanguinated. Tourniquet was insufflated to 300 mmHg. Standard medial parapatellar incision was made. Medial parapatellar arthrotomy was created. Deep fibers of the MCL were raised and anterior fat pad was resected. At this time, attention was turned to the patella. Patella measured 24, it was resected to a 14 for a 32 x 10 mm patella. Drill holes were then drilled and found to be in adequate position. The drill was then drilled in the distal femur and the intramedullary distal femoral cutting guide was then placed. 8 mm was resected off the distal femur and was found to be an adequate resection. Sizing guide was placed. It was found to be a size 5 press-fit CR femur that was shown on the implant record at the beginning of this dictation. The drill holes were drilled for the epicondylar axis using [place] line and epicondyles as reference. At this time, the 4-in- 1 cutting block was placed. An anterior posterior and anterior and posterior chamfer cuts were then completed. Attention was turned to the tibia. The posterior medial lateral retractors were placed. The extramedullary tibial guide was placed. It was placed in the old footprint of the ACL. It was aligned with the center of the ankle and 0 degrees of slope, 9 mm was then resected off the unaffected side. There was found to be an acceptable reduction. At this time, posterior osteophytes were removed along with medial and lateral meniscus. A trial implant was placed with a correct sized tibia that was mentioned at the beginning of the dictation. A [place] size 5, 9 mm CS polyethylene insert was then placed. The patient's knee was brought through range of motion. The patella was tracking centrally and was stable to varus and valgus stress. Alignment was found to be roughly at 0 degrees. The tibia was stamped and drilled in proper rotation. The universal tibial base plate was impacted in place. Next, the [place] size 5 press-fit CR femur impacted into place and the [place] size 5, 9 mm CS polyethylene insert was placed. The patient's knee was brought into full extension. The patella was then press-fit in place at this time. Tourniquet was deflated. One liter dilute Irricept solution was irrigated through the knee along with 1 L of pulse lavage irrigation with Ancef. Periarticular injection was then completed. The patient's knee was brought through a range of motion. Knee was found to be stable to varus valgus stress, the patella was tracking centrally with full range of motion. At this time, a #2 barbed suture was used for closure of the medial parapatellar arthrotomy. Topical tranexamic acid was placed. 2-0 Vicryl was used subcutaneously, Prineo was used for the skin. The patient tolerated the procedure well and was sent to the PACU in stable condition. MMDENISSE /[id number] DIEUDONNE
== END 2020-01-30 12:10 | disposition home or self-care (01) ==
LOC: JD.SDS 06:04
PROVIDERS: ATTEND Orthopaedic Surgery
DX: M17.11 Unilateral primary osteoarthritis, right knee (principal); I10 Essential (primary) hypertension; E78.5 Hyperlipidemia, unspecified; N40.1 Benign prostatic hyperplasia with lower urinary tract symptoms; R35.1 Nocturia; K21.9 Gastro-esophageal reflux disease without esophagitis; Z79.82 Long term (current) use of aspirin; Z79.899 Other long term (current) drug therapy; Z98.890 Other specified postprocedural states; G89.18 Other acute postprocedural pain
CPT/HCPCS: 01402; 64450; 73560-26-RT; 73560-RT; 87641; 97116-GP; 97161-GP; 97165-GO; A9270-GY; C1776; J0171; J0690; J0697; J1100; J1885; J2001; J2250; J2270; J2704; J2795; J3370; J3490; J7120

== ENCOUNTER 2024-03-21 10:57 | Inpatient (IN) | payer MEDICARE, BC ==
[2024-03-21 11:40] LABS: BASOPHILS ABSOLUTE AUTO 0.1 K/mm3 (0.0-0.2); BASOPHILS PERCENT AUTO 0.6 % (0.0-1.0); EOSINOPHILS ABSOLUTE AUTO 0.1 K/mm3 (0.0-0.4); EOSINOPHILS PERCENT AUTO 0.6 % (0.0-6.0); HEMOGLOBIN 17.1 gm/dl (14.0-18.0); IMMATURE GRAN ABSOLUTE AUTO 0.02 K/mm3 (0.00-0.05); IMMATURE GRAN PERCENT AUTO 0.2 % (0.0-0.4); LYMPHOCYTES ABSOLUTE AUTO 0.8 K/mm3 (1.0-4.8); LYMPHOCYTES PERCENT AUTO 9.6 % (24.0-44.0); MEAN CORPUSCULAR HEMOGLOBIN 26.9 pg (28.0-32.0); MEAN CORPUSCULAR HGB CONC 32.9 g/dl (32.0-36.0); MEAN CORPUSCULAR VOLUME 81.8 fl (83.0-99.0); MEAN PLATELET VOLUME 10.9 fl (9.4-12.4); MONOCYTES ABSOLUTE AUTO 0.7 K/mm3 (0.0-0.8); MONOCYTES PERCENT AUTO 7.9 % (0.0-8.0); NEUTROPHILS ABSOLUTE AUTO 6.7 K/mm3 (1.8-7.7); NEUTROPHILS PERCENT AUTO 81.1 % (41.0-71.0); PLATELET COUNT,PLT 194 K/mm3 (150-400); RED BLOOD CELL COUNT 6.36 M/mm3 (4.52-5.90); WHITE BLOOD CELL COUNT,WBC 8.32 K/mm3 (3.9-11.3)
[2024-03-21 12:16] LABS: A/G RATIO 1.2 (1-2); ANION GAP 13.7 (5-15); BILIRUBIN TOTAL 0.7 mg/dL (0.2-1.0); BUN/CREATININE RATIO 16.7 (14-18); CALCIUM 8.9 mg/dL (8.5-10.1); CREATININE 1.2 mg/dL (0.7-1.3); EST CRCL DRUG DOSING (CG) 51.69 mL/min; POTASSIUM,K 3.7 mEq/L (3.5-5.1); PROTEIN TOTAL,TP 7.3 g/dl (6.4-8.2)
[2024-03-21] MEDS: Sodium Chloride 0.9% 1,000 ML IV ONE ×2 (12:41→15:31)
[2024-03-21] MEDS ORDERED: Succinylcholine 200 MG/10 ML MDV ONE (13:45)
[2024-03-21] MEDS ORDERED: Propofol 200 MG/20 ML SDV ONE (13:45)
[2024-03-21] MEDS ORDERED: fentaNYL 100 MCG/2 ML SDV ONE (13:47)
[2024-03-21] MEDS ORDERED: Phenylephrine 1% 10 MG/ML SDV ONE (14:00)
[2024-03-21] MEDS ORDERED: ePHEDrine 50 MG/ML SDV ONE (14:18)
[2024-03-21] MEDS ORDERED: Lactated Ringers 1,000 ML ONE (14:23)
[2024-03-21] MEDS ORDERED: Ondansetron 4 MG Tab.DIS PO PRN (15:14)
[2024-03-21] MEDS ORDERED: Acetaminophen 325 MG Tab PO PRN (15:14)
[2024-03-21] MEDS: Dextrose 5%-0.45% NaCl 1,000 ML IV SCH (15:59)
[2024-03-21] MEDS: Tamsulosin 0.4 MG Cap.ER PO SCH (20:59)
[2024-03-21 21:53] LABS: HEMATOCRIT 39.9 % (42.0-52.0); HEMOGLOBIN 13.3 gm/dl (14.0-18.0)
[2024-03-22 04:23] LABS: BASOPHILS PERCENT AUTO 0.3 % (0.0-1.0); EOSINOPHILS ABSOLUTE AUTO 0.1 K/mm3 (0.0-0.4); EOSINOPHILS PERCENT AUTO 1.1 % (0.0-6.0); HEMATOCRIT 38.3 % (42.0-52.0); HEMOGLOBIN 12.6 gm/dl (14.0-18.0); IMMATURE GRAN ABSOLUTE AUTO 0.02 K/mm3 (0.00-0.05); IMMATURE GRAN PERCENT AUTO 0.3 % (0.0-0.4); LYMPHOCYTES ABSOLUTE AUTO 1.1 K/mm3 (1.0-4.8); LYMPHOCYTES PERCENT AUTO 14.8 % (24.0-44.0); MEAN CORPUSCULAR HEMOGLOBIN 27.3 pg (28.0-32.0); MEAN CORPUSCULAR HGB CONC 32.9 g/dl (32.0-36.0); MEAN CORPUSCULAR VOLUME 83.1 fl (83.0-99.0); MEAN PLATELET VOLUME 11.4 fl (9.4-12.4); MONOCYTES ABSOLUTE AUTO 0.8 K/mm3 (0.0-0.8); MONOCYTES PERCENT AUTO 10.6 % (0.0-8.0); NEUTROPHILS ABSOLUTE AUTO 5.2 K/mm3 (1.8-7.7); NEUTROPHILS PERCENT AUTO 72.9 % (41.0-71.0); PLATELET COUNT,PLT 152 K/mm3 (150-400); RED BLOOD CELL COUNT 4.61 M/mm3 (4.52-5.90); WHITE BLOOD CELL COUNT,WBC 7.14 K/mm3 (3.9-11.3)
[2024-03-22 04:37] LABS: ANION GAP 12.2 (5-15); BUN/CREATININE RATIO 12.7 (14-18); CALCIUM 7.7 mg/dL (8.5-10.1); CREATININE 1.1 mg/dL (0.7-1.3); EST CRCL DRUG DOSING (CG) 56.39 mL/min; POTASSIUM,K 3.2 mEq/L (3.5-5.1)
[2024-03-22] MEDS: Cholecalciferol (Vitamin D3) 25 MCG Tab PO SCH (08:16)
[2024-03-22] MEDS: Fish Oil/Omega-3 Fatty Acids 1 Gm Cap PO SCH (08:16)
[2024-03-22] MEDS: Zinc Sulfate 220 MG Cap PO SCH (08:16)
[2024-03-22] MEDS: Potassium Chloride 20 MEQ Tab.ER PO ONE (08:17)
[2024-03-22] MEDS: Multivitamins with Minerals/Folic Acid/Lutein/Zeaxanth Tab PO SCH (08:17)
[2024-03-22] MEDS: Hydrochlorothiazide 25 MG Tab PO SCH (08:17)
[2024-03-22] MEDS ORDERED: OMEPRAZOLE 10 MG PO SCH (09:00)
[2024-03-22] MEDS ORDERED: Non-Formulary Medication 1 Each (Lutein [Lutein] 20 MG Capsule) PO SCH (09:00)
[2024-03-22 10:18] LABS: HEMATOCRIT 38.9 % (42.0-52.0); HEMOGLOBIN 12.6 gm/dl (14.0-18.0)
== END 2024-03-22 13:37 | disposition home or self-care (01) | DRG 379 ==
LOC: JD.ED 10:57 → JD.SDS 13:33 → JD.ICU 14:57 → JD.SDS 15:31 → JD.ICU 15:32
PROVIDERS: ADMIT Surgery; ATTEND Surgery
PROC: 30233N1 Transfusion of Nonautologous Red Blood Cells into Peripheral Vein, Percutaneous Approach (ICD-10-PCS; 2024-03-21)
PROC: 0DJD8ZZ Inspection of Lower Intestinal Tract, Via Natural or Artificial Opening Endoscopic (ICD-10-PCS; principal; 2024-03-21 14:15)
DX: K57.31 Diverticulosis of large intestine without perforation or abscess with bleeding (principal); E78.00 Pure hypercholesterolemia, unspecified; I10 Essential (primary) hypertension; H54.7 Unspecified visual loss; K21.9 Gastro-esophageal reflux disease without esophagitis; N40.0 Benign prostatic hyperplasia without lower urinary tract symptoms; Z79.82 Long term (current) use of aspirin; M19.90 Unspecified osteoarthritis, unspecified site; G89.29 Other chronic pain; Z79.899 Other long term (current) drug therapy; Z79.1 Long term (current) use of non-steroidal anti-inflammatories (NSAID); Z87.440 Personal history of urinary (tract) infections; Z98.890 Other specified postprocedural states; Z87.81 Personal history of (healed) traumatic fracture
CPT/HCPCS: 00811; 36415; 36430; 80048; 80053; 83735; 85014; 85018; 85025; 86850; 86900; 86901; 86922; 96360; 99100; 99284-25; A9270-GY; J0330; J2371; J2704; J3010; J3490; J7030; J7120; J7799; P9016